=== PATIENT | female | born 1935 | race Caucasian/White ===

== ENCOUNTER 2018-10-09 17:37 | Inpatient (IN) ==
[2018-10-09] MEDS ORDERED: LASIX IV ONE (18:37)
[2018-10-09 19:18] LABS: BASO# 0.03 X1000 (0.0-0.2); BASO% 0.3 % (0.0-0.8); EOS# 0.31 X1000 (0.0-0.7); EOS% 3.3 % (0.0-10.0); HEMATOCRIT 36.8 % (37.0-47.0); HEMOGLOBIN 11.9 g/dL (12.0-16.0); LYMPH# 1.79 X1000 (1.2-3.4); MCH 31.2 PG (27-31); MCHC 32.3 g/dL (33-37); MCV 96.3 FL (81-99); MONO# 0.88 X1000 (0.11-0.59); MONO% 9.4 % (1.7-9.3); MPV 10.2 FL (7.4-10.4); NEUT# 6.39 X1000 (1.4-6.5); PLT 203 X1000 (130-400); RBC 3.82 XMIL (4.2-5.4); RDW 14.7 % (11.5-14.5)
[2018-10-09 19:28] LABS: INR 1.37; PROTIME 17.9 Seconds (11.0-16.0)
--- NOTE | 2018-10-09 19:37 | Diag Imaging Result Doc PS360 ---
CHEST-2 VIEWS - 10/09/2018 INDICATION: short of breath COMPARISON: 11/14/2017 FINDINGS: There is cardiomegaly and pulmonary vascular congestion. There are ill-defined infiltrates bilaterally, worse in the left upper lobe. No pneumothorax or large pleural effusion. IMPRESSION: Cardiomegaly and pulmonary vascular congestion. Nonspecific infiltrates compatible with edema and/or pneumonia. Electronically signed by Shane Trevino 10/09/2018 7:34 PM
[2018-10-09 19:44] LABS: ALB/GLOB RATIO 1.1; ALBUMIN 3.9 g/dL (3.5-5.0); CREATININE 1.1 mg/dL (0.5-0.9); MAGNESIUM 1.9 mg/dL (1.5-2.7); TOTAL BILIRUBIN 0.27 mg/dL (0.20-1.00); TOTAL PROTEIN 7.3 g/dL (6.3-8.3)
[2018-10-09 20:29] LABS: URINE SOURCE CATH
[2018-10-09 20:33] LABS: BILIRUBIN URINE NEGATIVE (NEGATIVE); BLOOD URINE NEGATIVE (NEGATIVE); COLOR YELLOW; GLUCOSE URINE NEGATIVE (NEGATIVE); KETONE URINE NEGATIVE (NEGATIVE); LEUKOCYTES URINE NEGATIVE (NEGATIVE); NITRITE URINE NEGATIVE (NEGATIVE); PROTEIN URINE NEGATIVE (NEGATIVE); SP GRAVITY URINE 1.008; TURBIDITY URINE CLEAR (CLEAR); UR EPITHELIAL CELLS <10 /HPF (<10); URINE BACTERIA NEGATIVE /HPF; URINE RBC <10 /HPF (<10); URINE WBC <10 /HPF (<10); UROBILINOGEN URINE NORMAL (NORMAL)
--- NOTE | 2018-10-09 22:48 | PROVIDER DOCUMENTATION ---
This chart was entered by Jenny Posada Scribe, acting as scribe for Audrey Castellanos MD. HPI-Respiratory General - General Chief Complaint: Shortness of Breath Stated Complaint: SOB Time Seen by Provider: 10/09/18 18:01 Source: patient Allergies/Adverse Reactions: Patient Allergies Allergy/AdvReac Type Severity Reaction Status Date / Time acetaminophen [From Lortab] Allergy Severe NAUSEA/VOMI Verified 10/17/15 11:09 TING amiodarone Allergy Severe RASH Verified 10/17/15 11:09 amitriptyline HCl * Allergy Severe wild, Verified 10/17/15 11:09 [From Elavil] aggitation aspirin Allergy Severe heart Verified 10/17/15 11:09 flutters caffeine Allergy Severe heart Verified 10/17/15 11:09 [From Darvon Compound-65] flutters cephalexin monohydrate * Allergy Severe RASH Verified 10/17/15 11:09 [From Keflex] codeine [Codeine] Allergy Severe crazy,n&V Verified 10/17/15 11:09 erythromycin estolate * Allergy Severe RASH Verified 10/17/15 11:09 [From Ilosone] hydrocodone bitartrate * Allergy Severe NAUSEA/VOMI Verified 10/17/15 11:09 [From Lortab] TING hydromorphone HCl * Allergy Severe RASH Verified 10/17/15 11:09 [From Dilaudid] indomethacin [From Indocin] Allergy Severe RASH Verified 10/17/15 11:09 indomethacin sodium * Allergy Severe RASH Verified 10/17/15 11:09 [From Indocin] Iodinated Contrast- Oral and Allergy Severe ANAPHYLAXIS Verified 10/17/15 11:09 IV Dye meperidine HCl * Allergy Severe crazy, Verified 10/17/15 11:09 [From Demerol] makes me mean, aggitation morphine Allergy Severe RASH, Verified 10/17/15 11:09 whelps pentazocine lactate * Allergy Severe crazy Verified 10/17/15 11:09 [From Talwin] perphenazine Allergy Severe crazy Verified 10/17/15 11:09 [From Triavil 2-10] phenobarbital Allergy Severe rash,vomiti Verified 10/17/15 11:09 ng povidone-iodine Allergy Severe RASH Verified 10/17/15 11:09 [From Betadine] pregabalin [From Lyrica] Allergy Severe Unknown Verified 10/17/15 11:09 propoxyphene HCl * Allergy Severe heart Verified 10/17/15 11:09 [From Darvon Compound-65] flutters soap * [From Betadine] Allergy Severe RASH Verified 10/17/15 11:09 Tetracyclines Allergy Severe blisters Verified 10/17/15 11:09 in mouth, gums bleed diltiazem HCl * Allergy RASH Verified 10/17/15 11:09 [From Cardizem] Latex, Natural Rubber Allergy RASH Verified 10/17/15 11:33 Home Medications: Home Medication List Medication Instructions Recorded Confirmed Last Taken Type Levothyroxine [Synthroid] 50 mcg PO DAILY 09/12/15 01/07/17 10/17/15 History Metformin HCl 500 mg PO BID 09/12/15 01/07/17 10/17/15 History Oxycodone HCl/Acetaminophen 1 tab PO TID PRN PRN 09/12/15 01/07/17 10/17/15 History [Oxycodon-Acetaminophen 7.5-325] Sotalol [Betapace] 80 mg PO BID 09/12/15 01/07/17 10/17/15 History Furosemide [Lasix] 40 mg PO DAILY #0 tablet 09/20/15 01/07/17 10/17/15 Rx Potassium Chloride E.r. [Klor-Con] 20 meq PO BID #0 tablet 09/20/15 01/07/17 10/17/15 Rx Esomeprazole [Nexium] 40 mg PO DAILY 10/17/15 01/07/17 10/17/15 History Duloxetine [Cymbalta] 60 mg PO DAILY capsule 01/08/17 Unknown Rx Oxycodone E.r. [Oxycontin] 10 mg PO Q12HR #60 tablet 01/08/17 Unknown Rx Sulfamethoxazole/Tmp D.s. [Septra 1 each PO BID #14 tablet 01/08/17 Unknown Rx Ds] Warfarin [Coumadin] 5 mg PO QHS tablet 01/08/17 Unknown Rx - History of Present Illness-Resp Nature of Presenting Problem: Pt is 83/F presenting to ED w/ SOB that has been present for the last 5 weeks, but has significantly worsened. Pt has hx of COPD, HTN and A-fib. She takes 40mg of Lasix daily, changed from 20mg 5 weeks prior. Family at bedside sts that they have not helped and she is prone to retaining fluid. Reported weight gain of about 10 lbs in the past couple of weeks. Quality of Pain: reports: none Onset/Duration: reports: gradual (gradual over the last 5 weeks.) Timing: reports: getting worse Cough Quality/Degree: reports: no cough Episode Frequency: chronic episodes Modifying Factors: improves with: nothing Associated Symptoms: reports: heart racing, shortness of breath, short of breath . denies: cough, wheezing Similar Symptoms Previously?: Yes Recently seen or treated by another doctor?: Yes Review of Systems - Adult - REVIEW OF SYSTEMS - ADULT Constitutional: reports: no symptoms reported. denies: chills, fever Eyes: reports: no symptoms reported Ears, Nose, Mouth & Throat: reports: no symptoms reported Cardiovascular: reports: no symptoms reported Respiratory: reports: shortness of breath. denies: cough, wheezing Gastrointestinal: reports: no symptoms reported. denies: abdominal pain Genitourinary: reports: no symptoms reported Musculoskeletal: reports: no symptoms reported Integumentary: reports: no symptoms reported Neurological: reports: no symptoms reported. denies: dizziness/vertigo, headache/migraines Psychiatric: reports: no symptoms reported Endocrine: reports: no symptoms reported Hematologic/Lymphatic: reports: no symptoms reported Allergic/Immunologic: reports: no symptoms reported All Other Systems: Reviewed and Negative Past History - Adult - PAST MEDICAL HISTORY-ADULT Review of Records: reports: Old Records Reviewed, Nursing Assessment Review, Medications Reviewed, Social history reviewed & non-contributory. Major Childhood Illnesses: reports: denies history Cardiovascular: reports: cardiac disease, HTN, palpitations Respiratory: reports: asthma, COPD Endocrine/Immune: reports: Diabetes, thyroid disorder - PRIOR SURGERIES/PROCEDURES Surgical/Procedure History: reports: appendectomy, hysterectomy, orthopedic (extremity) (total knee, left shoulder) - IMMUNIZATION STATUS Childhood Immunizations: See Nurse Assessment Flu Vaccine: See Nurse Assessment - FAMILY HISTORY Family History: reviewed, not pertinent - SOCIAL HISTORY Smoking: denies, non-smoker Substance Use: none/never Alcohol Use Frequency: never Living Situation: family Physical Exam-General - PHYSICAL EXAM-ADULT Initial Vital Signs Reviewed: Yes - CONSTITUTIONAL General Appearance: appears well, alert, mild distress - EYES Eyes: PERRL/EOMI, pink conjunctivae - HEAD, EARS, NOSE, MOUTH & THROAT HENMT: normocephalic/atraumatic, moist mucous membranes, normal ENT inspection, TMs normal, pharynx normal - NECK Neck: non-tender, full range of motion, supple - RESPIRATORY Respiratory: chest non-tender, lungs clear, respiratory distress, accessory muscle use. negative: crackles, rales, wheezing - CARDIOVASCULAR Cardiovascular: normal peripheral pulses, JVD, tachycardia, other (pt has pitting edema up to knee level as well as periorbital swelling). negative: no edema - GASTROINTESTINAL (ABDOMEN) Abdominal Exam: non tender, soft - LYMPHATIC Lymphatic: no adenopathy - MUSCULOSKELETAL Back Exam: normal inspection, no CVA tenderness, no vertebral tenderness Extremity: normal range of motion, non-tender, normal gait, normal capillary refill - SKIN Integumentary: normal color, warm/dry - NEUROLOGIC Neurologic: grossly normal - PSYCHIATRIC Psych/Mental Status: normal mood/affect, normal thought content, normal thought process, oriented x 3 Progress - PLAN OF CARE/RESULTS Progress/Plan/Lab Results: Vital Signs - 8 hr 10/09/18 18:00 10/09/18 18:15 10/09/18 18:20 Temperature 97.3 F L Pulse Rate 114 H Respiratory Rate 20 Blood Pressure 124/88 160/115 O2 Sat by Pulse Oximetry 91 L 87 L 95 10/09/18 18:23 10/09/18 18:30 10/09/18 18:40 Temperature Pulse Rate 118 H Respiratory Rate Blood Pressure 160/115 O2 Sat by Pulse Oximetry 98 97 89 L 10/09/18 18:50 10/09/18 19:00 10/09/18 19:18 Temperature Pulse Rate 114 H 124 H 108 H Respiratory Rate Blood Pressure O2 Sat by Pulse Oximetry 94 L 96 93 L 10/09/18 19:20 10/09/18 19:30 10/09/18 19:33 Temperature Pulse Rate 112 H 117 H 109 H Respiratory Rate Blood Pressure 138/103 O2 Sat by Pulse Oximetry 93 L 93 L 93 L 10/09/18 19:40 10/09/18 19:50 10/09/18 20:00 Temperature Pulse Rate 106 H 105 H 128 H Respiratory Rate Blood Pressure O2 Sat by Pulse Oximetry 94 L 94 L 94 L 10/09/18 20:02 10/09/18 20:10 10/09/18 20:20 Temperature Pulse Rate 103 H 105 H 106 H Respiratory Rate Blood Pressure 149/115 O2 Sat by Pulse Oximetry 93 L 92 L 95 10/09/18 20:30 10/09/18 20:33 10/09/18 20:40 Temperature Pulse Rate 93 H 107 H 109 H Respiratory Rate Blood Pressure 124/93 O2 Sat by Pulse Oximetry 95 95 94 L 10/09/18 20:50 10/09/18 20:59 10/09/18 21:00 Temperature Pulse Rate 96 H 98 H 121 H Respiratory Rate 17 Blood Pressure 124/93 O2 Sat by Pulse Oximetry 94 L 94 L 91 L 10/09/18 21:03 10/09/18 21:10 10/09/18 21:20 Temperature Pulse Rate 101 H 97 H 106 H Respiratory Rate Blood Pressure 142/99 O2 Sat by Pulse Oximetry 94 L 98 89 L 10/09/18 21:30 10/09/18 21:33 10/09/18 21:40 Temperature Pulse Rate 106 H 120 H 100 H Respiratory Rate Blood Pressure 143/106 O2 Sat by Pulse Oximetry 96 95 94 L 10/09/18 21:50 10/09/18 22:00 10/09/18 22:03 Temperature Pulse Rate 101 H 101 H 99 H Respiratory Rate Blood Pressure 141/93 O2 Sat by Pulse Oximetry 95 94 L 94 L Laboratory Results - last 24 hr 10/09/18 10/09/18 10/09/18 18:49 18:49 18:49 WBC 9.40 RBC 3.82 L Hgb 11.9 L Hct 36.8 L MCV 96.3 MCH 31.2 H MCHC 32.3 L RDW Std Deviation 14.7 H Plt Count 203 MPV 10.2 Immature Gran % (Auto) 0.0 Neut % (Auto) 68.0 Lymph % (Auto) 19.0 L [place] % (Auto) 9.4 H Eos % (Auto) 3.3 Baso % (Auto) 0.3 Immature Gran # (Auto) 0.00 Neut # (Auto) 6.39 Lymph # (Auto) 1.79 [place] # (Auto) 0.88 H Eos # (Auto) 0.31 Baso # (Auto) 0.03 PT INR Sodium 139 Potassium 5.0 Chloride 99 Carbon Dioxide 29 Anion Gap 11 BUN 27 H Creatinine 1.1 H Estimated GFR/1.73 m2 48 BUN/Creatinine Ratio 25 Glucose 158 H Calculated Osmolality 286 Calcium 10.0 Magnesium 1.9 Total Bilirubin 0.27 AST 24 ALT 15 Alkaline Phosphatase 68 Creatine Kinase 81 Troponin T [id number]-Xrkbuclxlvd Pept Total Protein 7.3 Albumin 3.9 Globulin 3.4 Albumin/Globulin Ratio 1.1 Plasma Lactate 1.7 TSH Urine Source Urine Color Urine Turbidity Urine pH Ur Specific [place] Urine Protein Ur Glucose (Stick) Ur Ketones (Stick) Urine Blood Urine Nitrite Urine Bilirubin Urobilinogen Dipstick Urine Leukocytes Urine WBC (Auto) Urine RBC (Auto) U Epithel Cells (Auto) Urine Bacteria (Auto) 10/09/18 10/09/18 10/09/18 18:49 18:49 18:49 WBC RBC Hgb Hct MCV MCH MCHC RDW Std Deviation Plt Count MPV Immature Gran % (Auto) Neut % (Auto) Lymph % (Auto) [place] % (Auto) Eos % (Auto) Baso % (Auto) Immature Gran # (Auto) Neut # (Auto) Lymph # (Auto) [place] # (Auto) Eos # (Auto) Baso # (Auto) PT 17.9 H INR 1.37 Sodium Potassium Chloride Carbon Dioxide Anion Gap BUN Creatinine Estimated GFR/1.73 m2 BUN/Creatinine Ratio Glucose Calculated Osmolality Calcium Magnesium Total Bilirubin AST ALT Alkaline Phosphatase Creatine Kinase Troponin T < 0.010 Bhw-I-Uazepjdlafo Pept 8268 H Total Protein Albumin Globulin Albumin/Globulin Ratio Plasma Lactate TSH Urine Source Urine Color Urine Turbidity Urine pH Ur Specific [place] Urine Protein Ur Glucose (Stick) Ur Ketones (Stick) Urine Blood Urine Nitrite Urine Bilirubin Urobilinogen Dipstick Urine Leukocytes Urine WBC (Auto) Urine RBC (Auto) U Epithel Cells (Auto) Urine Bacteria (Auto) 10/09/18 10/09/18 18:49 20:18 WBC RBC Hgb Hct MCV MCH MCHC RDW Std Deviation Plt Count MPV Immature Gran % (Auto) Neut % (Auto) Lymph % (Auto) [place] % (Auto) Eos % (Auto) Baso % (Auto) Immature Gran # (Auto) Neut # (Auto) Lymph # (Auto) [place] # (Auto) Eos # (Auto) Baso # (Auto) PT INR Sodium Potassium Chloride Carbon Dioxide Anion Gap BUN Creatinine Estimated GFR/1.73 m2 BUN/Creatinine Ratio Glucose Calculated Osmolality Calcium Magnesium Total Bilirubin AST ALT Alkaline Phosphatase Creatine Kinase Troponin T Kvr-T-Hznprongbbh Pept Total Protein Albumin Globulin Albumin/Globulin Ratio Plasma Lactate TSH 4.50 H Urine Source CATH Urine Color YELLOW Urine Turbidity CLEAR Urine pH 7.0 Ur Specific [place] 1.008 Urine Protein NEGATIVE Ur Glucose (Stick) NEGATIVE Ur Ketones (Stick) NEGATIVE Urine Blood NEGATIVE Urine Nitrite NEGATIVE Urine Bilirubin NEGATIVE Urobilinogen Dipstick NORMAL Urine Leukocytes NEGATIVE Urine WBC (Auto) <10 Urine RBC (Auto) <10 U Epithel Cells (Auto) <10 Urine Bacteria (Auto) NEGATIVE Orders Category Date Time Status Gonzalez Cath Insertion ORDERED Care 10/09/18 20:04 Active Nursing- Obtain EKG once Care 10/09/18 17:56 Active Saline Loc NOW Care 10/09/18 17:56 Active CHEST-2 VIEWS [RAD] Stat Exams 10/09/18 17:57 Completed CBC WITH ELECTRONIC DIFF [HEME] Stat Lab 10/09/18 18:49 Completed CK PROFILE [SP CHEM] Stat Lab 10/09/18 18:49 Completed COMPREHENSIVE METABOLIC PANEL [CHEM] Stat Lab 10/09/18 18:49 Completed LACTATE, PLASMA [CHEM] Stat Lab 10/09/18 18:49 Completed MAGNESIUM [CHEM] Stat Lab 10/09/18 18:49 Completed PRO B-NATRIURETIC PEPTIDE Stat Lab 10/09/18 18:49 Completed PROTIME WITH INR [COAG] Stat Lab 10/09/18 18:49 Completed TROPONIN T Stat Lab 10/09/18 18:49 Completed TSH Stat Lab 10/09/18 18:49 Completed UA [URINALYSIS W/POSS RFLX CULT] [URINALYSIS] Stat Lab 10/09/18 20:18 Completed Furosemide [Lasix] Med 10/09/18 18:37 Discontinued 60 mg IV NOW ONE EKG [EKG] Stat Ther 10/09/18 17:56 Ordered Transfer/Admit Order [TRANSFER] Routine Transfer 10/09/18 21:01 Ordered [facility] [address] , [address], [place] [address] Department of Imaging Patient: LE CERDA ADM Date: 10/09/18 MR#: [id number] : 1935 ADM Status: PRE ER Age/Sex: 83/F Room/Bed: Loc: ED Ordering Physician: Alex Heller MD Family Physician: Abhi Rebolledo MD Reason for Procedure: short of breath ___ Signed CHEST-2 VIEWS - 10/09/2018 INDICATION: short of breath COMPARISON: 11/14/2017 FINDINGS: There is cardiomegaly and pulmonary vascular congestion. There are ill-defined infiltrates bilaterally, worse in the left upper lobe. No pneumothorax or large pleural effusion. IMPRESSION: Cardiomegaly and pulmonary vascular congestion. Nonspecific i nfiltrates compatible with edema and/or pneumonia. Electronically signed by Shane Trevino 10/09/2018 7:34 PM 10/09/181933 Interpreting Physician: Shane Trevino MD Dictated Date/Time: 10/09/181933 cc: Alex Heller MD; Abhi Rebolledo MD Result Diagrams: 10/09/18 18:49 10/09/18 18:49 - EKG 1 Time of EKG reading by physician:: 18:04 EKG Read and Signed by:: Audrey Castellanos EKG Interpretation (*Must complete 3 of following elements*): Abnormal (Atrial fibrillation with rapid ventricular response, Low voltage QRS, Cannot rule out Anterior infarct age undetermined, Abnormal ECG) Rate: 124 Rhythm: Atrial fibrillation QRS: normal [place] Interval: normal ST Wave: normal - CONSULTS/PCP/HOSPITALIST Notification #1 *Consult/PCP/Hospitalist*: Dr Bourne Time Discussed: 22:47 Consult Disposition: Admit Departure - Departure Date of Disposition Decision: 10/09/18 Time of Disposition Decision: 20:26 DIAGNOSIS: CHF (congestive heart failure), A-fib, Hypothyroid Disposition: ADMITTED INPATIENT 09 Certified Medical Emergency: Emergent Condition: Stable - Critical Care Note This patient required my direct & personal management of CC.: No Attestation - Physician/ GOOD Attestation Patient care was provided by Advanced Practice Provider:: No The physician spent face to face time with patient:: Yes Advanced Practice Provider documentation review:: Supervising physician onsite and consulted in the evaluation and care of this patient. The physician did have a face to face encounter with the patient. This chart was documented by the indicated scribe, (Jenny Posada, [place]) and accurately reflects the services I performed and decisions made by me, Audrey Castellanos MD, as attested by the provider's signature.
[2018-10-09] MEDS ORDERED: OXYCONTIN PO ONE (23:15)
--- NOTE | 2018-10-09 23:50 | HISTORY AND PHYSICAL ---
ADDENDUM: Chief complaint was shortness of breath. She has been dealing with this intermittently for 5 weeks. I think she has seen Dr. Rebolledo as an outpatient. Her Lasix has been increased to 40 mg daily. Her daughter reports overall she has gained 10 pounds in the last 2 weeks, 15 in the last 5 weeks, I guess most of it in the last 2 weeks. No cough. No fevers, no chills. No night sweats. She is just still accumulating fluid. She came in. She was tachycardic in the 100s to 110s, but not clearly in RVR, but atrial fibrillation and she had evidence of heart failure based on her chest x-ray and elevated proBNP of 8268. Her exam reveals rales. She has about 1+ edema in her legs. The patient will be admitted for treatment. 1. For her CHF exacerbation we will give her IV diuretics. Try to work on getting her tachycardia down. If she has systolic or diastolic dysfunction, I went ahead and added digoxin. She is already on sotalol and we will consult Cardiology, Dr. Mujica, to make further changes. 2. Atrial fibrillation, which is not controlled. We will adjust her medicines. She is on sotalol, so presumably her ejection fraction is intact. We will try to get a repeat echocardiogram despite the weekend, and again, I have added digoxin to help with rate control and also heart failure symptoms. 3. Diabetes. We will continue metformin. Check A1c. Continue sliding scale insulin and follow. This was a [id number] encounter note with HOLLIE Bee. Dr. Rebolledo and primary team will resume care in the morning. cc: Jose Armando Bourne MD
[2018-10-09] MEDS ORDERED: TYLENOL PO ONE (23:57)
[2018-10-10] MEDS ORDERED: ZOFRAN IV PRN
[2018-10-10] MEDS ORDERED: COUMADIN PO ONE (00:10)
[2018-10-10] MEDS: LANOXIN IV SCH ×3 (00:15→10:00)
[2018-10-10] MEDS ORDERED: LOPRESSOR PO SCH (03:15)
[2018-10-10 04:12] LABS: BASO# 0.03 X1000 (0.0-0.2); BASO% 0.3 % (0.0-0.8); EOS# 0.19 X1000 (0.0-0.7); EOS% 1.9 % (0.0-10.0); HEMATOCRIT 33.9 % (37.0-47.0); HEMOGLOBIN 10.9 g/dL (12.0-16.0); IMM GRAN# 0.02 X1000 (0.0-0.04); IMM GRAN% 0.2 % (0.0-0.5); LYMPH# 1.76 X1000 (1.2-3.4); LYMPH% 17.7 % (20.5-51.1); MCHC 32.2 g/dL (33-37); MCV 96.3 FL (81-99); MONO# 0.81 X1000 (0.11-0.59); MONO% 8.1 % (1.7-9.3); MPV 9.6 FL (7.4-10.4); NEUT# 7.16 X1000 (1.4-6.5); NEUT% 71.8 % (42.2-75.2); PLT 203 X1000 (130-400); RBC 3.52 XMIL (4.2-5.4); RDW 14.4 % (11.5-14.5); WBC 9.97 X1000 (4.8-10.8)
[2018-10-10 04:28] LABS: INR 1.42; PROTIME 18.4 Seconds (11.0-16.0)
[2018-10-10 04:38] LABS: HEMOGLOBIN A1C 6.7 % (4.8-6.0)
[2018-10-10 05:02] LABS: ALB/GLOB RATIO 1.1; ALBUMIN 3.4 g/dL (3.5-5.0); CALCIUM 8.3 mg/dL (8.8-10.2); CREATININE 1.1 mg/dL (0.5-0.9); MAGNESIUM 1.7 mg/dL (1.5-2.7); POTASSIUM 4.6 mmol/L (3.5-5.1); TOTAL BILIRUBIN 0.44 mg/dL (0.20-1.00); TOTAL PROTEIN 6.4 g/dL (6.3-8.3)
[2018-10-10] MEDS: LASIX IV SCH ×2 (05:31→17:10)
[2018-10-10] MEDS ORDERED: TYLENOL PO PRN ×2 (07:00)
[2018-10-10] MEDS ORDERED: MOTRIN PO PRN (08:28)
[2018-10-10] MEDS ORDERED: OXYCONTIN PO SCH ×2 (09:00)
[2018-10-10] MEDS ORDERED: COUMADIN PO SCH ×3 (09:00→21:00)
[2018-10-10] MEDS ORDERED: BETAPACE PO SCH (09:00)
[2018-10-10] MEDS ORDERED: GLUCOPHAGE PO SCH ×2 (09:00)
[2018-10-10] MEDS: IMDUR PO SCH (09:59)
[2018-10-10] MEDS: KLOR-CON PO SCH ×2 (09:59→20:08)
[2018-10-10] MEDS: ALDACTONE PO SCH (09:59)
[2018-10-10] MEDS: CYMBALTA PO SCH (09:59)
--- NOTE | 2018-10-10 09:59 | PROGRESS NOTE ---
DATE: 10/10/2018 SUBJECTIVE: Ms. Brown is an 83-year-old white female with chest tightness and shortness of breath for a couple of days, who presented to the emergency room and was found to have pulmonary edema. Initial laboratory did not suggest pneumonia, and she has been afebrile. This morning, hemoglobin was 10.9, hematocrit 33.9, white blood count 9900. Sodium 139, potassium 4.6, BUN 25, creatinine 1.1. Hemoglobin A1c 6.7, calcium 8.3, albumin 3.4. TSH 3.4, free T4 1.18. CPK 60, troponin less than 0.01. I and O reveals balance of -4.6 L. She is feeling better this morning, and chest is clear. PLAN: Continue intravenous Lasix. Gradually increase activity. cc: Abhi Rebolledo MD
[2018-10-10] MEDS: OXYCONTIN PO SCH ×2 (13:09→23:46)
[2018-10-10] MEDS: TOPROL XL PO SCH ×2 (14:27→20:08)
--- NOTE | 2018-10-10 14:31 | CARDIOLOGY CONSULTATION ---
DATE: 10/10/2018 83-year-old lady was seen today who is followed up in [place] has multiple allergies, comes with complaints of having increasing episodes of shortness of breath associated with chest tightness which has been going on for at least the last 3 to 4 weeks. She is on medications for atrial fibrillation. Has not had any worsening palpitations. There is no dizziness or syncope. In the past she used to take sotalol now is on other beta blockers. She was admitted, started on IV Lasix, since then her shortness of breath has improved. REVIEW OF SYSTEM: A 14-point review of systems was done. GI: There is no history of nausea, vomiting or diarrhea. There is no history of hematemesis or melena. Central nervous system: No focal weakness to suggest CVA, TIA. : There is no dysuria or hematuria. PAST MEDICAL HISTORY: 1. Atrial fibrillation. 2. Diabetes. 3. Gastroesophageal reflux disease. 4. Hypothyroidism. 5. Chronic atrial fibrillation. 6. Chronic anticoagulation therapy. HOME MEDICATIONS: Included metformin 500 mg a day, Lasix 40 mg a day, duloxetine 60 a day, Nexium 20 mg daily, ibuprofen 200 mg as needed, isosorbide mononitrate 30 mg a day, levothyroxine 50 mcg a day, metformin 1000 mg with supper, metoprolol 50 mg p.o. t.i.d., spironolactone 25, Coumadin as directed, potassium supplements. ALLERGIES: She is allergic to amiodarone which causes severe rash, aspirin, caffeine, codeine, erythromycin, hydromorphone, indomethacin, iodinated contrast she has anaphylaxis, meperidine, Cardizem, Betadine, tetracyclines, phenobarbital, morphine, Darvon, latex. PHYSICAL EXAMINATION: Vital Signs: Blood pressure was 135/74. Cardiovascular: Normal jugular venous pressure. First and second heart sounds were heard. There was no S3 gallop. Respiratory: Bibasilar scattered inspiratory crepitations. Abdomen: Soft, nontender. There was no guarding or rigidity. Bowel sounds were heard. Central nervous system: Alert and was moving all 4 extremities. Examination of extremities revealed mild pedal edema. DATA: Chest x-ray, cardiomegaly, nonspecific infiltrates, pulmonary congestion. LABORATORY EXAMINATION: Cardiac enzymes were negative. ProBNP elevated at 8268. Sodium 139, potassium 4.6, BUN 25, creatinine 1.1. Hemoglobin A1c 6.7. WBC 9.9, hemoglobin 10.9, hematocrit 33, platelet count of 203,000, INR 1.42. ASSESSMENT AND PLAN: Ms. Luli Brown is an 83-year-old lady with history of chronic atrial fibrillation, diabetes, hypothyroidism, heart failure, gastroesophageal reflux disease, comes with complaints of increasing shortness of breath. The patient was given intravenous Lasix. Symptomatically she has improved. PLAN: 1. We will get an echocardiogram to assess cardiac and valvular function. 2. Her cardiac enzymes were negative. 3. She has had atrial fibrillation and is on beta-blockers, metoprolol 50 t.i.d. and Coumadin for stroke prophylaxis. We will continue that. 4. Hypertension. Continue with Toprol and spironolactone. I have not made any changes. 5. As far as heart failure is concerned, she was on Lasix 40 mg p.o. daily, she is on IV Lasix 40 mg twice a day, has symptomatically improved. 6. Hypothyroidism. Continue with levothyroxine. 7. Diabetes. Continue with her current medications. 8. We will get records from [place] pertaining to her care there. She says she has undergone an arteriogram and other tests there as well. Thank you for the consult. Will follow hospital course. cc: MD Abhi Muniz MD MTDD
--- NOTE | 2018-10-10 14:51 | ECHO REPORT ---
ORDER DATE: 10/10/2018 ECHOCARDIOGRAPHIC MEASUREMENTS: 1. Interventricular septum 1.1. 2. Left ventricular posterior wall 1.1. 3. Diastolic diameter 4.8. 4. Left atrium 4.8. 5. Aorta 3.4. SUMMARY: 1. There is moderate tricuspid regurgitation. 2. Peak velocity across the tricuspid valve was 4.3 m/sec. 3. Pulmonary artery systolic pressure of 84 mmHg. There is pulmonary arterial hypertension. There is mild mitral regurgitation. 4. Mild pulmonary regurgitation. 5. Pulmonic valve was normal. 6. Aortic valve leaflets were trileaflet. 7. There is no aortic stenosis. 8. There is mild aortic regurgitation. 9. There is biatrial enlargement. 10. Normal left ventricular cavity size. 11. Mild left ventricular hypertrophy. 12. Estimated ejection fraction of 60%. 13. Atrial fibrillation was noted. 14. There is mild mitral regurgitation. 15. There is no pericardial effusion or obvious intracardiac mass or thrombus seen. cc: MD Abhi Muniz MD
[2018-10-10] MEDS: GLUCOPHAGE PO SCH (17:10)
[2018-10-10] MEDS: DESYREL PO SCH (20:08)
[2018-10-10] MEDS: COUMADIN PO SCH (20:08)
--- NOTE | 2018-10-11 02:03 | HISTORY AND PHYSICAL ---
PRIMARY CARE PROVIDER: Dr. Abhi Rebolledo. CHIEF COMPLAINT: Shortness of breath and edema. HISTORY OF PRESENT ILLNESS: Ms Brown is an 83-year-old female with a past medical history most notable for congestive heart failure, atrial fibrillation on chronic anticoagulation with Coumadin, diabetes mellitus and hypothyroidism. The patient presents to the ER this evening with complaints of worsening shortness of breath and edema. The patient as well as her daughter at bedside state for the past 5 weeks the patient has had progressive worsening of her symptoms. She states that they did go to see Dr. Rebolledo. He did increase her Lasix dose from 20 to 40 daily though even with this she has continued to have worsening symptoms. She has also had a reported 10 pound weight gain in the last 2 weeks and a total of 15 pounds weight gain in the last 5 weeks. She denies any headache, dizziness. She is reporting occasional pain in the center of her chest but states this is intermittent. She is reporting shortness of breath and denies any cough. She denies any fever, body aches, or chills. She denies any abdominal pain, nausea, vomiting, or diarrhea. She denies any hematochezia or melena. She denies any dysuria. The patient is reporting edema in her bilateral lower extremities. It is approximately 1 to 2+ pitting edema at this time. She states that this has worsened. Her legs do have reddish discoloration noted to bilateral lower extremities from approximately knees down but she states this is not a new onset though she has had problems with cellulitis in the past. She denies any pain in her bilateral lower extremities at this time. Upon evaluation in the ER, patient was noted to have elevated proBNP that was 8268 though her cardiac enzymes were negative. She did have crackles noted in bilateral bases upon auscultation. Chest x-ray did show cardiomegaly and pulmonary vascular congestion. There were nonspecific infiltrates compatible with edema and/or pneumonia. She was in atrial fibrillation. Her heart rate was slightly elevated in the low 100s to 110s. She has been given an initial dose of 60 mg of IV Lasix in the ER and has had positive return of greater than 3000 mL of urine output. The patient states since this time that she does feel much better. She will be admitted inpatient for further treatment and evaluation of congestive heart failure exacerbation. REVIEW OF SYSTEM: A 14-point review of systems was conducted with the patient and all were negative except for pertinent positives mentioned above HPI. PAST MEDICAL HISTORY: 1. Degenerative disk disease. 2. Osteoarthritis. 3. Fibromyalgia. 4. Congestive heart failure. 5. Atrial fibrillation, on chronic anticoagulation with Coumadin. 6. Diabetes mellitus. 7. Gastroesophageal reflux disease. 8. Hypothyroidism. PAST SURGICAL HISTORY: Left shoulder surgery. SOCIAL HISTORY: She is a . Her daughter does help take care of her. She was present at bedside during our examination. She has no known tobacco, alcohol or illicit drug use. She does live in an assisted living facility in [place], [place]. FAMILY HISTORY: Positive for 1 of her sisters having gastric cancer, another sister had leukemia. She does have a brother who has had heart disease with myocardial infarction and diabetes mellitus. ALLERGIES: The patient has multiple allergies. The list is very extensive. 1. Lortab. 2. Amiodarone. 3. Elavil. 4. Aspirin. 5. Darvon. 6. Keflex. 7. Codeine. 8. Ilosone. 9. Dilaudid. 10. Indocin. 11. Oral and IV iodinated contrast dye. 12. Demerol. 13. Morphine. 14. Talwin. 15. Triavil. 16. Phenobarbital. 17. Betadine. 18. Lyrica. 19. Tetracyclines. 20. Cardizem. 21. Latex. HOME MEDICATIONS: 1. Tylenol Arthritis 650 mg p.o. t.i.d. p.r.n. 2. Benzonatate 200 mg p.o. t.i.d. p.r.n. 3. [*]20 mg p.o. b.i.d. p.r.n. 4. Cymbalta 60 mg p.o. daily. 5. Nexium 20 mg p.o. daily. 6. Lasix 40 mg p.o. daily. 7. Ibuprofen 200 mg p.o. t.i.d. p.r.n. 8. Fusion capsule 1 p.o. daily. 9. Isosorbide mononitrate extended release 30 mg. 10. Synthroid 50 mcg p.o. daily. 11. Metformin 500 mg p.o. daily in the morning. 12. Metformin 1000 mg p.o. with supper. 13. Toprol-XL 50 mg p.o. t.i.d. 14. OxyContin 10 mg p.o. q.12 hours for pain. 15. Percocet 7.5 one p.o. t.i.d. p.r.n. 16. Potassium chloride extended release 10 mEq p.o. b.i.d. 17. Spironolactone 25 mg p.o. daily. 18. Trazodone 100 mg p.o. at bedtime. 19. Coumadin 2.5 mg p.o. daily except for on Friday for which she takes 5 mg p.o. DIAGNOSTIC DATA: White blood cell count is 9400, hemoglobin 11.9, hematocrit 36.8, platelet count is 203,000. PT is 17.9. INR 1.37. Sodium 139, potassium 5, chloride 99, serum bicarbonate is 29, BUN 27, creatinine 1.1 with a GFR of 48, glucose 158, calcium 10, magnesium 1.9. Liver function tests within normal limits. CK 81. Troponin less than 0.01. ProBNP is 8268. Urinalysis was obtained via catheter. It was negative for any signs of infection, negative for glucose, ketones, blood, nitrites, leukocytes, white blood cells or bacteria. EKG showed atrial fibrillation at a rate of 124 with a QTc of 442. Chest x-ray showed cardiomegaly and pulmonary vascular congestion. There were nonspecific infiltrates compatible with edema and/or pneumonia. PHYSICAL EXAMINATION: VITAL SIGNS: Temperature 97.5 degrees, heart rate 105, respirations 16, blood pressure 138/95, oxygen saturation is 97% nasal cannula at 2 L. GENERAL: The patient at this time is alert and oriented to person, place though she is slightly confused at times about past medical history though she is able to answer questions appropriately and follow commands. HEENT: Head is atraumatic, normocephalic. Pupils are equal, round, reactive to light, were 3 mm bilaterally and brisk. Oral mucosa is moist. Oropharynx is clear. NECK: Supple. Trachea midline. CARDIOVASCULAR: Patient has S1 and S2. No murmurs, gallops, rubs appreciated though she does have irregularly irregular rhythm with a rate that is slightly tachycardic. PULMONARY: Patient has symmetrical chest expansion bilaterally. Lung sounds in upper lung brink were clear to auscultation though lower lung brink did have crackles noted in bilateral bases. ABDOMEN: Soft, nondistended, nontender. Bowel sounds are present in all 4 quadrants, were normoactive. EXTREMITIES: No cyanosis noted though the patient does have edema and a reddish discoloration noted in bilateral lower extremities. The reddish discoloration is from bilateral knees down. She does have 1 to 2+ pitting edema noted from bilateral knees down as well though pulse, motor and sensory are intact in all extremities. Radial pulses and pedal pulses were 2+ bilaterally. INTEGUMENTARY: The patient's skin is pink, warm, and dry except for above mentioned reddish discoloration in the above extremities exams. NEUROLOGICAL: Patient is alert and oriented to person and place. She is able to answer questions appropriately and follow commands though she does have some confusion at times about questions related to past medical history. She is able move all extremities. There do no appear to be focal neurological deficits noted at this time. ASSESSMENT AND PLAN: 1. Congestive heart failure exacerbation. For this, we will continue with IV diuretics. She did receive 60 mg of Lasix IV initially and did have a positive return of greater than 3000 mL of urine output. We will continue with Lasix 40 mg IV q.12 hours. We will also perform an echocardiogram and she will have a series of cardiac enzymes. We will continue her metoprolol though it looks as though the patient did take Toprol-XL 50 mg p.o. t.i.d. At this time we have placed her with Toprol tartrate 50 mg p.o. q.6 hours. We will also give her digoxin as well to see if we can slow her heart rate down a bit. She still is a little tachycardic at this time. The patient does report that since being given the Lasix and having urine output as previous mentioned that she does feel much better. She denies any chest pain at present. We will place a consult with Cardiology and await their evaluation and further recommendations for management. 2. History of atrial fibrillation, on chronic anticoagulation with Coumadin. We will continue the patient's metoprolol as mentioned above. We have also ordered for her to receive digoxin as well. She will be placed on CIC. She will have continuous cardiac telemetry and vital signs per CIC protocol. We will continue the patient's Coumadin as well though she is slightly subtherapeutic. We will give her 5 mg of Coumadin tonight, repeat her INR and adjust her dosage from there. 3. Diabetes mellitus. We will continue her metformin. 4. Gastroesophageal reflux disease. We will continue her Prilosec. 5. Chronic pain secondary to degenerative disk disease, osteoarthritis and fibromyalgia. We will continue the patient's regularly prescribed pain medications of OxyContin as well as p.r.n. Percocet. 6. Hypothyroidism. We will continue her Synthroid as well. We have placed an order for a TSH. 7. Venous thromboembolism prophylaxis will be provided with previously mentioned Coumadin. The patient has been placed on CIC with telemetry. She will have vital signs per CIC protocol. We will do daily weights, strict intake and output. She will be on a diabetic diet. We will do patterned fingerstick blood sugars. We will repeat a CBC, CMP with magnesium in the morning. We will also continue with serial cardiac enzymes. Further orders and recommendations pending hospital course, diagnostic data and physician evaluation. Dictated by HOLLIE Bee for Jose Armando Bourne MD cc: MD Abhi Majano MD
[2018-10-11] MEDS: LASIX IV SCH ×2 (05:57→17:01)
[2018-10-11] MEDS: PRILOSEC PO SCH (06:00)
[2018-10-11] MEDS: SYNTHROID PO SCH (06:00)
[2018-10-11 06:29] LABS: INR 1.61; PROTIME 20.4 Seconds (11.0-16.0)
[2018-10-11] MEDS: TOPROL XL PO SCH ×3 (09:02→17:01)
[2018-10-11] MEDS: ALDACTONE PO SCH (09:02)
[2018-10-11] MEDS: IMDUR PO SCH (09:02)
[2018-10-11] MEDS: KLOR-CON PO SCH ×2 (09:03→20:46)
[2018-10-11] MEDS: CYMBALTA PO SCH (09:03)
[2018-10-11] MEDS: GLUCOPHAGE PO SCH ×2 (09:03→17:01)
--- NOTE | 2018-10-11 11:48 | PROGRESS NOTE ---
DATE: 10/11/2018 SUBJECTIVE: Ms. Brown is an 83-year-old, white, female patient admitted with increasing shortness of breath, weight gain, bilateral leg swelling. The patient was not responding to outpatient treatment. The patient was evaluated in the ER, found to be in uncompensated congestive heart failure. The patient was given IV Lasix in the ER. She diuresed very well. Patient also had underlying atrial fibrillation. The patient had a rapid ventricular response. As patient was not responding to outpatient treatment, she was admitted for further care. The patient is doing fair. She still had some shortness of breath. She denied any nausea. Complaining of neck pain. No typical chest pain. Denied abdominal pain. No fever or chills. No dysuria or hematuria. Denied any diarrhea. Admission history and physical noted. PAST MEDICAL HISTORY: Significant for congestive heart failure, history of atrial fibrillation, diabetes mellitus, gastritis and reflux disease, hypothyroidism, degenerative disk disease, fibromyalgia. PHYSICAL EXAMINATION: Vital Signs: Blood pressure 133/90, pulse 93, respirations 18, temperature 98.1 degrees. Skin: Senile turgor. Neck: Supple. No JVD. Lungs: Bilateral good air entry present. Few basal crepitations. CVS: S1 and S2. Irregularly irregular. A 2/6 systolic murmur at the apex. Abdomen: Soft, globular. Bowel sounds present. Extremities: No cyanosis, clubbing. No acute DVT. ACROBATIC RIGGER: Alert, awake. Able to move all 4 limbs. LABORATORY DATA: Revealed TSH of 3.40, free T4 of 1.18. Blood sugar was 157. CONSIDERATION: 1. Uncompensated congestive heart failure. 2. Atrial fibrillation with rapid ventricular response. 3. Hypertension. 4. Hypothyroidism. 5. Diabetes mellitus. 6. Osteoarthritis. 7. Degenerative disk disease. PLAN: The patient is on intravenous Lasix, beta rubina, Synthroid, Coumadin, pain medications. We are monitoring her prothrombin time. Overall plan discussed with the patient and she is in agreement. cc: MD Abhi Altman MD
[2018-10-11] MEDS: OXYCONTIN PO SCH ×2 (13:15→23:38)
[2018-10-11] MEDS: DESYREL PO SCH (20:46)
[2018-10-11] MEDS ORDERED: COUMADIN PO SCH (21:00)
[2018-10-11] MEDS: TYLENOL ARTHRITIS PO PRN (21:24)
[2018-10-12] MEDS: OXYCONTIN PO SCH ×2 (03:19→15:22)
[2018-10-12 05:42] LABS: INR 1.63; PROTIME 20.6 Seconds (11.0-16.0)
[2018-10-12] MEDS: PRILOSEC PO SCH (06:07)
[2018-10-12] MEDS: LASIX IV SCH ×2 (06:07→17:01)
[2018-10-12] MEDS: SYNTHROID PO SCH (06:08)
--- NOTE | 2018-10-12 07:51 | EKG Report ---
Test Performed on : 10/09/2018 6:04:38 PM Test Reason : SOB Blood Pressure : / mmHG Vent. Rate : 124 BPM Atrial Rate : 156 BPM P-R Int : 000 ms QRS Dur : 088 ms QT Int : 308 ms P-R-T Axes : 000 051 058 degrees QTc Int : 442 ms Atrial fibrillation. with rapid ventricular response. Low voltage QRS Cannot rule out Anterior infarct , age undetermined Abnormal ECG When compared with ECG of 22-APR-2017 18:50, Atrial fibrillation. has replaced Sinus rhythm. Criteria for Inferior infarct are no longer present Unconfirmed Result
--- NOTE | 2018-10-12 07:59 | PROGRESS NOTE ---
DATE: 10/12/2018 VITAL SIGNS: Stable with temperature 97.6 degrees, heart rate 88, respirations 19, blood pressure 110/70, O2 saturation on 2 liters nasal oxygen 93%. SUBJECTIVE: The patient continues to be weak, but is eating fairly well. She was up in a chair yesterday. There is no ankle edema. PLAN: Repeat BMP tomorrow morning, and chest x-ray. Physical Therapy is asked to assist ambulation. cc: Abhi Rebolledo MD
--- NOTE | 2018-10-12 09:16 | Diag Imaging Result Doc PS360 ---
EXAM: CHEST-PORTABLE HISTORY: dyspnea TECHNIQUE: Portable chest single view COMPARISON: 10/09/2018 FINDINGS: Poor inspiratory effort. There are infiltrates in the mid and lower left lung. The right lung is clear. The heart remains mildly enlarged. No pleural effusions identified. IMPRESSION: No significant interval improvement. Electronically signed by Abdiaziz Trujillo 10/12/2018 9:14 AM
[2018-10-12] MEDS: TOPROL XL PO SCH ×2 (12:00→15:23)
[2018-10-12] MEDS: GLUCOPHAGE PO SCH ×2 (12:20→17:01)
[2018-10-12] MEDS ORDERED: LEXISCAN ONE (13:40)
[2018-10-12] MEDS: KLOR-CON PO SCH ×2 (15:22→20:03)
[2018-10-12] MEDS: CYMBALTA PO SCH (15:22)
[2018-10-12] MEDS: IMDUR PO SCH (15:23)
[2018-10-12] MEDS: ALDACTONE PO SCH (15:23)
--- NOTE | 2018-10-12 16:15 | Diag Imaging Result Document ---
PROCEDURE NAME: MYOCARDIAL PERF SCAN, STR/REST - 10/12/2018 MYOCARDIAL PERFUSION SCAN AND RESULT: INDICATION: CHF exacerbation. PROCEDURES PERFORMED: 1. Lexiscan stress. 2. One-day stress/rest myocardial perfusion imaging. PROCEDURE DETAIL: Ms. Brown was brought to the nuclear laboratory and had a resting study with injection of 12.6 mCi of technetium-99m sestamibi with the usual imaging protocol utilized. She subsequently was brought back and had a Lexiscan stress and at peak stress was injected with 34.9 mCi of technetium-99m sestamibi with the usual imaging protocol utilized. FINDINGS: LEXISCAN STRESS RESULTS: 1. Baseline EKG shows atrial fibrillation, a suggestion of inferior Q-waves. 2. Lexiscan stress did not demonstrate any clear evidence of ischemic related EKG changes or significant arrhythmias. PERFUSION IMAGING RESULTS: 1. No evidence of abnormal extracardiac uptake. 2. TID ratio 0.89. 3. Perfusion imaging demonstrates what appears to be a small size, mild intensity, fixed defect located at the apex, which is likely suggestive of apical thinning artifact. There is no clear evidence of ischemic-related changes. 4. There is a normal ejection fraction of 72%. End-diastolic volume 77 end-systolic volume 22. Normal wall motion. cc: MD Anette Salinas PA
[2018-10-12] MEDS: TYLENOL ARTHRITIS PO PRN (20:03)
[2018-10-12] MEDS: COUMADIN PO SCH (20:03)
[2018-10-12] MEDS: DESYREL PO SCH (20:03)
[2018-10-13] MEDS: PERCOCET-5 PO PRN ×2 (00:13→13:34)
[2018-10-13] MEDS: OXYCONTIN PO SCH ×2 (02:59→17:45)
[2018-10-13] MEDS: LASIX IV SCH ×2 (05:27→17:45)
[2018-10-13 06:00] LABS: CALCIUM 8.6 mg/dL (8.8-10.2); CREATININE 1.2 mg/dL (0.5-0.9)
--- NOTE | 2018-10-13 08:20 | Diag Imaging Result Doc PS360 ---
EXAM: CHEST-2 VIEWS HISTORY: CHF TECHNIQUE: Chest two views COMPARISON: 10/12/2018 FINDINGS: Poor inspiratory effort. The heart remains enlarged. There are infiltrates in the mid and lower left lung. Questionable small infiltrates in the right apex. No pleural effusions. IMPRESSION: Stable chest Electronically signed by Abdiaziz Trujillo 10/13/2018 8:18 AM
[2018-10-13] MEDS: ALDACTONE PO SCH (08:50)
[2018-10-13] MEDS: IMDUR PO SCH (08:50)
[2018-10-13] MEDS: PRILOSEC PO SCH (08:50)
[2018-10-13] MEDS: CYMBALTA PO SCH (08:50)
[2018-10-13] MEDS: SYNTHROID PO SCH (08:51)
[2018-10-13] MEDS: KLOR-CON PO SCH ×2 (08:51→20:11)
[2018-10-13] MEDS: GLUCOPHAGE PO SCH ×2 (08:51→17:46)
[2018-10-13] MEDS ORDERED: TOPROL XL PO SCH (09:00)
[2018-10-13] MEDS ORDERED: LANOXIN IV ONE (18:24)
[2018-10-13] MEDS: DESYREL PO SCH (20:11)
[2018-10-13] MEDS: COUMADIN PO SCH (20:12)
[2018-10-13] MEDS: LOPRESSOR PO SCH (20:12)
[2018-10-14] MEDS: LASIX IV SCH (05:57)
[2018-10-14] MEDS: SYNTHROID PO SCH (06:00)
[2018-10-14] MEDS: PRILOSEC PO SCH (06:00)
[2018-10-14] MEDS: OXYCONTIN PO SCH (06:00)
[2018-10-14] MEDS: ALDACTONE PO SCH (08:40)
[2018-10-14] MEDS: GLUCOPHAGE PO SCH (08:40)
[2018-10-14] MEDS: IMDUR PO SCH (08:40)
[2018-10-14] MEDS: KLOR-CON PO SCH (08:41)
[2018-10-14] MEDS: LOPRESSOR PO SCH (08:41)
[2018-10-14] MEDS: CYMBALTA PO SCH (08:51)
--- NOTE | 2018-10-14 08:53 | DISCHARGE SUMMARY ---
ADMISSION DATE: 10/09/2018 DISCHARGE DATE: 10/14/2018 FINAL DIAGNOSES: 1. Acute systolic congestive heart failure. 2. Pulmonary edema. 3. Peripheral edema. 4. Diabetes. 5. Chronic neck and spine pain secondary to osteoarthritis. 6. Lumbar disk disease. 7. Hypothyroidism, 8. Atrial fibrillation with rapid ventricular response. DISCHARGE MEDICATIONS: Usual medication at home except Lasix is increased to 40 mg b.i.d. instead of once daily. Also, digoxin 125 mcg is added once daily. HISTORY: This is the first fairly recent [facility] admission for this 83-year-old white female who presented to the emergency room with a several-day history of increasing shortness of breath. Chest x-ray revealed pulmonary edema. Initial laboratory, hemoglobin 11.9, hematocrit 36.8, white blood count 9400 with normal differential. Sodium 139, potassium 5.0, BUN 27, creatinine 1.1, glucose 158. Liver functions normal. TSH 4.5. ProBNP 8268. CK 81 with troponin less than 0.01. Albumin was low at 3.4. HOSPITAL COURSE: She had good diuresis with IV Lasix. Peripheral edema resolved. Chest x-ray showed persistent infiltrate, but improved. Discussion was made with the patient and daughter concerning disposition. It is felt she will benefit most from rehab placement and physical therapy prior to returning to assisted living. She is discharged home today on the above medications to be seen back in the office after rehab placement. cc: Abhi Rebolledo MD
[2018-10-14] MEDS ORDERED: LANOXIN PO SCH (09:00)
[2018-10-14 11:32] VITALS: BP 119/71
== END 2018-10-14 13:27 | DRG 293 ==
LOC: ED 17:37 → 3N 22:07 → 3S 22:53
PROVIDERS: ADMIT Family Medicine; ATTEND Family Medicine
CPT/HCPCS: 51702; 71010; 71020; 71045; 71046; 78452; 80048; 80053; 81001; 82550; 82948; 83036; 83605; 83735; 83880; 84439; 84443; 84484; 85025; 85610; 93005; 93017; 93306; 94760; 94761; 94799; 96374; 97162; 97530; 99285; A9270; A9500; J1160; J1940; J2785; XXXXX

== ENCOUNTER 2018-11-16 12:40 | Inpatient (IN) ==
--- NOTE | 2018-11-16 14:30 | EKG Report ---
Test Performed on : 11/16/2018 12:48:19 PM Test Reason : AMS Blood Pressure : / mmHG Vent. Rate : 116 BPM Atrial Rate : 105 BPM P-R Int : 000 ms QRS Dur : 088 ms QT Int : 300 ms P-R-T Axes : 000 021 -24 degrees QTc Int : 417 ms Poor data quality, interpretation may be adversely affected Atrial fibrillation. with rapid ventricular response. Abnormal ECG When compared with ECG of 09-OCT-2018 18:04, (Unconfirmed) Nonspecific T wave abnormality, improved in Anterolateral leads Unconfirmed Result
[2018-11-16 14:44] LABS: BASO# 0.02 X1000 (0.0-0.2); BASO% 0.2 % (0.0-0.8); EOS# 0.26 X1000 (0.0-0.7); EOS% 2.2 % (0.0-10.0); HEMATOCRIT 39.2 % (37.0-47.0); HEMOGLOBIN 12.2 g/dL (12.0-16.0); IMM GRAN# 0.03 X1000 (0.0-0.04); IMM GRAN% 0.3 % (0.0-0.5); LYMPH# 1.59 X1000 (1.2-3.4); LYMPH% 13.6 % (20.5-51.1); MCH 30.4 PG (27-31); MCHC 31.1 g/dL (33-37); MCV 97.8 FL (81-99); MONO# 0.89 X1000 (0.11-0.59); MONO% 7.6 % (1.7-9.3); MPV 10.1 FL (7.4-10.4); NEUT# 8.86 X1000 (1.4-6.5); NEUT% 76.1 % (42.2-75.2); PLT 262 X1000 (130-400); RBC 4.01 XMIL (4.2-5.4); RDW 15.7 % (11.5-14.5); WBC 11.65 X1000 (4.8-10.8)
[2018-11-16 14:48] LABS: BLOOD TYPE ARTERIAL; SAMPLE BLOOD
[2018-11-16 14:49] LABS: ALLEN TEST YES; BE 9.1 mmoll (-3.0-3.0); HCO3-(ACT) 31.9 mmoll (20.0-26.0); METHB 1.1 % (0.0-1.5); MODALITY CANNULA; O2(CT) 16.2 mL/dL (15.0-23.0); O2HB 93.9 % (95.0-99.0); PO2(98.6) 73 mmHg (60-100); SAO2 96.5 % (95.0-100.0); THB 12.2 g/dL (11.5-17.4); pH(98.6) 7.41 (7.35-7.45)
[2018-11-16 14:50] LABS: PCO2(98.6) 56 mmHg (35-45)
[2018-11-16 15:03] LABS: ALB/GLOB RATIO 1.1; ALBUMIN 3.5 g/dL (3.5-5.0); CALCIUM 9.1 mg/dL (8.8-10.2); CREATININE 1.1 mg/dL (0.5-0.9); POTASSIUM 4.3 mmol/L (3.5-5.1); TOTAL BILIRUBIN 0.2 mg/dL (0.20-1.00); TOTAL PROTEIN 6.8 g/dL (6.3-8.3)
--- NOTE | 2018-11-16 15:13 | Diag Imaging Result Doc PS360 ---
EXAM: CHEST-1 VIEW 11/16/2018 HISTORY: ams TECHNIQUE: AP portable at 1439 COMMENT: Compared to 10/13/2018 there is increasing opacity in the left upper lobe. The lateral right apical region is also somewhat denser. IMPRESSION: Worsening upper lobe pneumonia has. Electronically signed by Jey Montgomery 11/16/2018 3:10 PM
--- NOTE | 2018-11-16 15:57 | Diag Imaging Result Doc PS360 ---
EXAM: CT HEAD W/O CONTRAST INDICATION: AMS TECHNIQUE: This exam was performed using automated exposure control, adjustment of mA or kV according to patient size, and/or use of iterative reconstruction technique. COMPARISON: 12/16/2013 FINDINGS: There is stable mild diffuse brain atrophy. There is patchy low attenuation in the periventricular and subcortical white matter suggesting moderate white matter microangiopathy. It does appear to be slightly worse than the previous study. There is no definite acute infarct given the limited sensitivity of CT versus MRI. There is no discrete intracranial mass, mass effect, or intracranial hemorrhage. The surrounding soft tissues and bony structures are essentially unremarkable. IMPRESSION: Chronic appearing changes as described. No definite acute intracranial pathology by CT Electronically signed by Crescencio Hickey 11/16/2018 3:55 PM
[2018-11-16 17:00] LABS: URINE SOURCE CLEAN CATCH
[2018-11-16 17:09] LABS: BILIRUBIN URINE NEGATIVE (NEGATIVE); BLOOD URINE NEGATIVE (NEGATIVE); COLOR YELLOW; GLUCOSE URINE NEGATIVE (NEGATIVE); KETONE URINE NEGATIVE (NEGATIVE); LEUKOCYTES URINE NEGATIVE (NEGATIVE); NITRITE URINE NEGATIVE (NEGATIVE); PROTEIN URINE NEGATIVE (NEGATIVE); SP GRAVITY URINE 1.008; TURBIDITY URINE CLEAR (CLEAR); UROBILINOGEN URINE NORMAL (NORMAL)
[2018-11-16 17:11] LABS: UR EPITHELIAL CELLS <10 /HPF (<10); URINE BACTERIA NEGATIVE /HPF; URINE RBC <10 /HPF (<10); URINE WBC <10 /HPF (<10)
[2018-11-16] MEDS ORDERED: LEVAQUIN 500 MG/D5W 500 MG/100 ML IVPB IV ONE (17:30)
--- NOTE | 2018-11-16 17:33 | PROVIDER DOCUMENTATION ---
This chart was entered by Shirley Maier Scribe, acting as scribe for Jose Luis García MD. HPI-Neurological Disorder - General Chief Complaint: Altered Mental Status Stated Complaint: AMS Time Seen by Provider: 11/16/18 14:20 Source: family (daughter) Allergies/Adverse Reactions: Patient Allergies Allergy/AdvReac Type Severity Reaction Status Date / Time amiodarone Allergy Severe RASH Verified 10/17/15 11:09 amitriptyline HCl * Allergy Severe wild, Verified 10/17/15 11:09 [From Elavil] aggitation aspirin Allergy Severe heart Verified 10/17/15 11:09 flutters caffeine Allergy Severe heart Verified 10/17/15 11:09 [From Darvon Compound-65] flutters cephalexin monohydrate * Allergy Severe RASH Verified 10/17/15 11:09 [From Keflex] codeine [Codeine] Allergy Severe crazy,n&V Verified 10/17/15 11:09 erythromycin estolate * Allergy Severe RASH Verified 10/17/15 11:09 [From Ilosone] hydrocodone bitartrate * Allergy Severe NAUSEA/VOMI Verified 10/17/15 11:09 [From Lortab] TING hydromorphone HCl * Allergy Severe RASH Verified 10/17/15 11:09 [From Dilaudid] indomethacin [From Indocin] Allergy Severe RASH Verified 10/17/15 11:09 indomethacin sodium * Allergy Severe RASH Verified 10/17/15 11:09 [From Indocin] Iodinated Contrast- Oral and Allergy Severe ANAPHYLAXIS Verified 10/17/15 11:09 IV Dye meperidine HCl * Allergy Severe crazy, Verified 10/17/15 11:09 [From Demerol] makes me mean, aggitation morphine Allergy Severe RASH, Verified 10/17/15 11:09 whelps pentazocine lactate * Allergy Severe crazy Verified 10/17/15 11:09 [From Talwin] perphenazine Allergy Severe crazy Verified 10/17/15 11:09 [From Triavil 2-10] phenobarbital Allergy Severe rash,vomiti Verified 10/17/15 11:09 ng povidone-iodine Allergy Severe RASH Verified 10/17/15 11:09 [From Betadine] pregabalin [From Lyrica] Allergy Severe Unknown Verified 10/17/15 11:09 propoxyphene HCl * Allergy Severe heart Verified 10/17/15 11:09 [From Darvon Compound-65] flutters soap * [From Betadine] Allergy Severe RASH Verified 10/17/15 11:09 Tetracyclines Allergy Severe blisters Verified 10/17/15 11:09 in mouth, gums bleed diltiazem HCl * Allergy RASH Verified 10/17/15 11:09 [From Cardizem] Latex, Natural Rubber Allergy RASH Verified 10/17/15 11:33 Home Medications: Home Medication List Medication Instructions Recorded Confirmed Last Taken Type Metformin HCl 500 mg PO DAILY 09/12/15 10/10/18 10/17/15 History Oxycodone HCl/Acetaminophen 1 tab PO TID PRN PRN 09/12/15 10/10/18 10/17/15 History [Oxycodon-Acetaminophen 7.5-325] Furosemide [Lasix] 40 mg PO DAILY #0 tablet 09/20/15 10/10/18 10/17/15 Rx Duloxetine [Cymbalta] 60 mg PO DAILY capsule 01/08/17 10/10/18 Unknown Rx Oxycodone E.r. [Oxycontin] 10 mg PO Q12HR #60 tablet 01/08/17 10/10/18 Unknown Rx Acetaminophen E.r. [Tylenol 650 mg PO TID PRN PRN 10/10/18 10/10/18 Unknown History Arthritis] Benzonatate 200 mg PO TID PRN PRN 10/10/18 10/10/18 Unknown History Diphenhydramine HCl [Banophen] 25 mg PO BID PRN PRN 10/10/18 10/10/18 Unknown History Esomeprazole Magnesium [Nexium 20 mg PO DAILY 10/10/18 10/10/18 Unknown History 24Hr] Ibuprofen 200 mg PO TID PRN PRN 10/10/18 10/10/18 Unknown History Iron Fum,Ps No.1/Vit C/L.casei 1 ea PO DAILY 10/10/18 10/10/18 Unknown History [Fusion Capsule] Isosorbide Mononitrate [Isosorbide 30 mg PO DAILY 10/10/18 10/10/18 Unknown History Mononitrate ER] Levothyroxine [Synthroid] 50 mcg PO DAILY 10/10/18 10/10/18 Unknown History Metformin [Glucophage] 1,000 mg PO WSUPPER 10/10/18 10/10/18 Unknown History Metoprolol Succinate E.r. [Toprol 50 mg PO TID 10/10/18 10/10/18 Unknown History Xl] Potassium Chloride E.r. [Klor-Con] 10 meq PO BID 10/10/18 10/10/18 Unknown History Spironolactone 25 mg PO DAILY 10/10/18 10/10/18 Unknown History Trazodone HCl 100 mg PO HS 10/10/18 10/10/18 Unknown History Warfarin [Coumadin] 2.5 mg PO DAILY 10/10/18 10/10/18 Unknown History Warfarin [Coumadin] 5 mg PO DIRECTED 10/10/18 10/10/18 Unknown History Digoxin [Lanoxin] 125 microgm PO DAILY tab 10/14/18 Unknown Rx Metoprolol [Lopressor] 50 mg PO BID tab 10/14/18 Unknown Rx Oxycodone E.r. [Oxycontin] 10 mg PO Q12H tab 10/14/18 Unknown Rx Warfarin [Coumadin] 5 mg PO [place] tab 10/14/18 Unknown Rx - History of Present Illness-Neuro Nature of Presenting Problem: Patient is a 83 year old female who presents to the ED via EMS with altered mental status. Daughter states patient has been agitated, disoriented and having tremors. States symptoms have been present for 1 week and getting worse. Patient denies pain. Severity: reports: mild Onset/Duration: reports: 1 week ago Timing: reports: still present, getting worse Context: reports: other (AMS and tremors) Character of Altered Mental Status: reports: disoriented (per family), agitated Any recent trauma/injury?: reports: none Cognitive Baseline: alert, oriented x3 Associated Symptoms: reports: denies symptoms, other (tremors) Similar Symptoms Previously?: Yes Recently seen or treated by another doctor?: No - Seizure First time to have a seizure?: No Witnessed seizure?: No Review of Systems - Adult - REVIEW OF SYSTEMS - ADULT ROS:: ROS per family (daughter) Constitutional: reports: no symptoms reported, see HPI. denies: chills, fever, fatique Eyes: reports: no symptoms reported, see HPI Ears, Nose, Mouth & Throat: reports: no symptoms reported, see HPI Cardiovascular: reports: no symptoms reported, see HPI Respiratory: reports: no symptoms reported, see HPI Gastrointestinal: reports: no symptoms reported, see HPI Genitourinary: reports: no symptoms reported, see HPI Musculoskeletal: reports: no symptoms reported, see HPI Integumentary: reports: no symptoms reported, see HPI Neurological: reports: see HPI, tremors, other (AMS - agitated and disoriented). denies: dizziness/vertigo, headache/migraines Psychiatric: reports: no symptoms reported, see HPI Endocrine: reports: no symptoms reported, see HPI Hematologic/Lymphatic: reports: no symptoms reported, see HPI Allergic/Immunologic: reports: no symptoms reported, see HPI All Other Systems: Reviewed and Negative Past History - Adult - PAST MEDICAL HISTORY-ADULT Review of Records: reports: Old Records Reviewed, Nursing Assessment Review, Medications Reviewed, Social history reviewed & non-contributory. Major Childhood Illnesses: reports: denies history Cardiovascular: reports: cardiac disease, CHF, HTN, palpitations Respiratory: reports: asthma, COPD Gastrointestinal: reports: denies history Obstetrical/Gynecological: reports: denies history Genitourinary: reports: denies history Musculoskeletal: reports: denies history Neurological: reports: denies history Endocrine/Immune: reports: Diabetes, thyroid disorder Other Conditions: reports: denies history - PRIOR SURGERIES/PROCEDURES Surgical/Procedure History: reports: appendectomy, hysterectomy, orthopedic (extremity) (total knee, left shoulder), joint replacement - IMMUNIZATION STATUS Childhood Immunizations: See Nurse Assessment Flu Vaccine: See Nurse Assessment - FAMILY HISTORY Family History: reviewed, not pertinent - SOCIAL HISTORY Smoking: denies Substance Use: denies Living Situation: care facility (assisted living) Physical Exam- Neurological - Physical Exam-Neuro Initial Vital Signs Reviewed: Yes General Appearance: appears well, alert, no apparent distress. negative: lethargic Eye Exam: bilateral eye: normal inspection, PERRL, EOMI HENMT: normocephalic/atraumatic, moist mucous membranes, other (dry mucous membranes). negative: angioedema Head Injury: no evidence of injury. negative: active bleeding, lacerations Respiratory: chest non-tender, lungs clear, normal breath sounds. negative: rales Cardiovascular: tachycardia, irregularly irregular. negative: systolic murmur Abdominal Exam: normal bowel sounds, soft, tenderness (suprapubic). negative: guarding Extremity: non-tender, other (cellulitis to bilateral lower extremities). negative: deformity blue line trimmer Exam: normal hearing, normal speech, PERRL, other (Pt is AOx3 in the ER.). negative: facial droop Coordination/Gait: normal finger to nose Motor/Sensory: no motor deficit, no sensory deficit, no pronator drift Neurologic: blue line trimmer II-XII nml as tested, grossly normal, no motor/sensory deficits. negative: aphasia, facial droop, motor weakness Integumentary: normal color, normal turgor, warm/dry. negative: diaphoresis, ecchymosis Psych/Mental Status: normal mood/affect. negative: anxious, paranoid - Glascow Coma Scale Best Eye Response: (4) open spontaneously Best Verbal Response: (5) oriented Best Motor Response: (6) obeys commands Progress - PLAN OF CARE/RESULTS Progress/Plan/Lab Results: Vital Signs - 8 hr 11/16/18 12:47 11/16/18 13:58 11/16/18 14:00 Temperature 99.8 F H Pulse Rate 118 H 129 H 121 H Respiratory Rate 16 21 20 Blood Pressure 144/94 109/80 O2 Sat by Pulse Oximetry 99 96 11/16/18 14:02 11/16/18 14:10 11/16/18 14:20 Temperature Pulse Rate 120 H 130 H 127 H Respiratory Rate 19 23 31 H Blood Pressure 125/94 O2 Sat by Pulse Oximetry 95 90 L 93 L 11/16/18 14:30 11/16/18 14:32 11/16/18 14:40 Temperature Pulse Rate 117 H 123 H 126 H Respiratory Rate 22 23 24 Blood Pressure 119/79 O2 Sat by Pulse Oximetry 97 100 91 L 11/16/18 14:50 11/16/18 15:02 11/16/18 15:10 Temperature Pulse Rate 116 H 132 H 126 H Respiratory Rate 19 16 Blood Pressure O2 Sat by Pulse Oximetry 98 90 L 11/16/18 15:20 11/16/18 15:46 11/16/18 15:50 Temperature Pulse Rate 109 H 112 H 103 H Respiratory Rate 23 26 H 27 H Blood Pressure O2 Sat by Pulse Oximetry 91 L 97 11/16/18 16:00 11/16/18 16:03 11/16/18 16:10 Temperature Pulse Rate 120 H 115 H 118 H Respiratory Rate 15 19 17 Blood Pressure 145/93 O2 Sat by Pulse Oximetry 94 L 96 94 L 11/16/18 16:20 11/16/18 16:30 11/16/18 16:32 Temperature Pulse Rate 115 H 118 H 98 H Respiratory Rate 17 18 21 Blood Pressure 127/87 O2 Sat by Pulse Oximetry 94 L 99 99 11/16/18 16:40 Temperature Pulse Rate 103 H Respiratory Rate 21 Blood Pressure O2 Sat by Pulse Oximetry 98 Laboratory Results - last 24 hr 11/16/18 11/16/18 11/16/18 14:15 14:15 14:15 WBC 11.65 H RBC 4.01 L Hgb 12.2 Hct 39.2 MCV 97.8 MCH 30.4 MCHC 31.1 L RDW Std Deviation 15.7 H Plt Count 262 MPV 10.1 Immature Gran % (Auto) 0.3 Neut % (Auto) 76.1 H Lymph % (Auto) 13.6 L [place] % (Auto) 7.6 Eos % (Auto) 2.2 Baso % (Auto) 0.2 Immature Gran # (Auto) 0.03 Neut # (Auto) 8.86 H Lymph # (Auto) 1.59 [place] # (Auto) 0.89 H Eos # (Auto) 0.26 Baso # (Auto) 0.02 Specimen Type Sample Site pH pCO2 pO2 HCO3 Base Excess Oxyhemoglobin ABG O2 Sat (Calculated) ABG O2 Saturation ABG Carboxyhemoglobin ABG Methemoglobin Amaury Test A-a O2 Difference Total Hemoglobin Lactate Liter Flow Blood Gas Modality FiO2 % Sodium 141 Potassium 4.3 Chloride 96 L Carbon Dioxide 31 Anion Gap 14 BUN 20 Creatinine 1.1 H Estimated GFR/1.73 m2 48 BUN/Creatinine Ratio 18 Glucose 186 H POC Glucose Calculated Osmolality 289 Calcium 9.1 Total Bilirubin 0.20 AST 30 ALT 13 Alkaline Phosphatase 70 Troponin T 0.013 Total Protein 6.8 Albumin 3.5 Globulin 3.3 Albumin/Globulin Ratio 1.1 Urine Source Urine Color Urine Turbidity Urine pH Ur Specific State Road Urine Protein Ur Glucose (Stick) Ur Ketones (Stick) Urine Blood Urine Nitrite Urine Bilirubin Urobilinogen Dipstick Urine Leukocytes Urine WBC (Auto) Urine RBC (Auto) U Epithel Cells (Auto) Urine Bacteria (Auto) 11/16/18 11/16/18 11/16/18 14:39 14:43 16:45 WBC RBC Hgb Hct MCV MCH MCHC RDW Std Deviation Plt Count MPV Immature Gran % (Auto) Neut % (Auto) Lymph % (Auto) [place] % (Auto) Eos % (Auto) Baso % (Auto) Immature Gran # (Auto) Neut # (Auto) Lymph # (Auto) [place] # (Auto) Eos # (Auto) Baso # (Auto) Specimen Type ARTERIAL Sample Site R RADIAL pH 7.41 pCO2 56 H* pO2 73 HCO3 31.9 H Base Excess 9.1 H Oxyhemoglobin 93.9 L ABG O2 Sat (Calculated) 16.2 ABG O2 Saturation 96.5 ABG Carboxyhemoglobin 1.60 ABG Methemoglobin 1.1 Amaury Test YES A-a O2 Difference 85.0 Total Hemoglobin 12.2 Lactate 2.80 H Liter Flow 3.0 Blood Gas Modality CANNULA FiO2 % 32.0 Sodium Potassium Chloride Carbon Dioxide Anion Gap BUN Creatinine Estimated GFR/1.73 m2 BUN/Creatinine Ratio Glucose POC Glucose 175 H Calculated Osmolality Calcium Total Bilirubin AST ALT Alkaline Phosphatase Troponin T Total Protein Albumin Globulin Albumin/Globulin Ratio Urine Source CLEAN CATCH Urine Color YELLOW Urine Turbidity CLEAR Urine pH 7.[address] 1.008 Urine Protein NEGATIVE Ur Glucose (Stick) NEGATIVE Ur Ketones (Stick) NEGATIVE Urine Blood NEGATIVE Urine Nitrite NEGATIVE Urine Bilirubin NEGATIVE Urobilinogen Dipstick NORMAL Urine Leukocytes NEGATIVE Urine WBC (Auto) <10 Urine RBC (Auto) <10 U Epithel Cells (Auto) <10 Urine Bacteria (Auto) NEGATIVE Orders Category Date Time Status Nursing- Obtain EKG ONCE Care 11/16/18 14:[address] HEAD W/O CONTRAST [CT] Stat Exams 11/16/18 14:32 Completed cxr [CHEST-1 VIEW] [RAD] Stat Exams 11/16/18 14:23 Completed ABG [RESP] Routine Lab 11/16/18 14:39 Completed BLOOD CULTURE [BLDCUL] Stat Lab 11/16/18 17:30 Ordered CBC WITH ELECTRONIC DIFF [HEME] Stat Lab 11/16/18 14:15 Completed COMPREHENSIVE METABOLIC PANEL [CHEM] Stat Lab 11/16/18 14:15 Completed PROTIME WITH INR [COAG] Stat Lab 11/16/18 18:10 Ordered PTT [COAG] Stat Lab 11/16/18 18:10 Ordered TROPONIN T Stat Lab 11/16/18 14:15 Completed URINALYSIS W/POSS RFLX CULT [URINALYSIS] Stat Lab 11/16/18 16:45 Completed Albuterol 2.5MG/Ipratrop 0.5MG [Duoneb (A & A)] Med 11/16/18 17:52 Discontinued 3 ml INH NOW ONE Levofloxacin 500 mg/D5w [Levaquin 500 mg/D5w] Med 11/16/18 17:30 Discontinued 500 mg in 100 ml IV NOW Aerosol Treatments Routine Oth 11/16/18 17:52 Active Aerosol Treatments Stat Oth 11/16/18 17:52 Active EKG [EKG] Stat Ther 11/16/18 14:23 Draft Transfer/Admit Order [TRANSFER] Routine Transfer 11/16/18 18:31 Ordered Pt discussed with Dr Rubio who declined to admit advising for pt to get ABx, steroid, and inhaler and follow up with Dr Rebolledo in the AM. Pt agrees with plan and will follow up in am. Result Diagrams: 11/16/18 14:15 11/16/18 14:15 - EKG 1 Time of EKG reading by physician:: 12:48 EKG Read and Signed by:: Jose Luis García EKG Interpretation (*Must complete 3 of following elements*): Abnormal Rate: 116 Rhythm: atrial fibrillation with rapid ventricular response [place]: normal Comments: abnormal ECG 2 Time of EKG reading by physician:: 16:16 EKG Read and Signed by:: Jose Luis García EKG Interpretation (*Must complete 3 of following elements*): Abnormal Rate: 117 Rhythm: atrial fibrillation with rapid ventricular response [place]: normal Comments: nonspecific T wave abnormality. - XRAY 1 XRAY Study: Chest Impression: See EMR Report ( EXAM: CHEST-1 VIEW 11/16/2018 HISTORY: ams TECHNIQUE: AP portable at 1439 COMMENT: Compared to 10/13/2018 there is increasing opacity in the left upper lobe. The lateral right apical region is also somewhat denser. IMPRESSION: Worsening upper lobe pneumonia has. Electronically signed by Jey Montgomery 11/16/2018 3:10 PM 11/16/18 1510 Interpreting Physician: Jey Montgomery MD Dictated Date/Time: 11/16/18 1510 cc: Jose Luis García MD; Abhi Rebolledo MD) - CT/MRI 1 CT Study: Head Impression: See EMR Report ( EXAM: CT HEAD W/O CONTRAST INDICATION: AMS TECHNIQUE: This exam was performed using automated exposure control, adjustment of mA or kV according to patient size, and/or use of iterative reconstruction technique. COMPARISON: 12/16/2013 FINDINGS: There is stable mild diffuse brain atrophy. There is patchy low attenuation in the periventricular and subcortical white matter suggesting moderate white matter microangiopathy. It does appear to be slightly worse than the previous study. There is no definite acute infarct given the limited sensitivity of CT versus MRI. There is no discrete intracranial mass, mass effect, or intracranial hemorrhage. The surrounding soft tissues and bony structures are essentially unremarkable. IMPRESSION: Chronic appearing changes as described. No definite acute intracranial pathology by CT Electronically signed by Crescencio Hickey 11/16/2018 3 :55 PM 11/16/18 8148 Interpreting Physician: Crescencio Hickey MD Dictated Date/Time: 11/16/18 4928 cc: Jose Luis García MD; Abhi Rebolledo MD) - CONSULTS/PCP/HOSPITALIST Notification #1 *Consult/PCP/Hospitalist*: Dr. Rubio for Dr. Rebolledo Time Discussed: 17:40 Reason/Comments: Dr. García consulted with Dr. Rubio about patient. Consult Disposition: other (Dr. Rubio declined admission and advised antibiotics and steroid inhaler.) #2 Consult: Dr Rebolledo to exam room and plans to admit pt. Time Discussed: 19:26 Consult Disposition: Will see in ED, Admit Departure - Departure Date of Disposition Decision: 11/16/18 Time of Disposition Decision: 17:32 DIAGNOSIS: COPD (chronic obstructive pulmonary disease), Pneumonia, Renal insufficiency Disposition: ADMITTED INPATIENT 09 Certified Medical Emergency: Emergent Condition: Fair Additional Freetext Instructions: ED Follow Up Instructions: You have been treated by a care provider in the Emergency Department. These instructions are being provided to you so you can have an understanding of how to care for yourself upon discharge. Upon discharge from the Emergency Department, you are responsible for making arrangements for follow-up care by a physician of your choice. Take all prescribed medications as directed. Return to the Emergency Department immediately for any new or worsening symptoms. You may call the Physician Referral phone number at [phone] to obtain a list of Physicians who are taking new patients. Referrals and Follow-Ups: Abhi Rebolledo MD [Primary Care Provider] - - Critical Care Note This patient required my direct & personal management of CC.: No Attestation - Physician/ GOOD Attestation Patient care was provided by Advanced Practice Provider:: No The physician spent face to face time with patient:: Yes Advanced Practice Provider documentation review:: Supervising physician onsite and consulted in the evaluation and care of this patient. The physician did have a face to face encounter with the patient. This chart was documented by the indicated scribe, (Shirley Maier Scribe) and accurately reflects the services I performed and decisions made by me, Jose Luis García MD, as attested by the provider's signature.
[2018-11-16] MEDS ORDERED: DUONEB (A & A) INH ONE (17:52)
--- NOTE | 2018-11-16 19:47 | HISTORY AND PHYSICAL ---
CHIEF COMPLAINT: Pneumonia, left upper lobe, also cough for several days and altered mental status. HISTORY OF PRESENT ILLNESS: [facility] 83-year-old white female, resident at Assisted Living, who for the last 3 days has been weaker, shaky, and gradually has become confused and disoriented. The daughter stated that when nursing assistants stood her up that she was very shaky and unable to stand without 2 people assisting. She was brought by ambulance to the emergency room where chest x-ray revealed left upper lobe pneumonia. CT scan of her head revealed no mass or acute change. There were chronic microvascular changes. She is admitted for treatment with intravenous antibiotics and nebulizer treatments as well as oxygen. PAST MEDICAL HISTORY: Recent hospitalization for congestive heart failure and diuresis. PAST SURGICAL HISTORY: Her last surgery was left shoulder surgery. She has had no recent surgery. MEDICATIONS: Numerous including ibuprofen 200 mg 2 t.i.d. p.r.n. pain, OxyContin 10 mg q.12 hours, Percocet 7.5/325 1 t.i.d., Tessalon Perles 200 mg t.i.d., digoxin 0.125 mg 1 daily, duloxetine 60 mg daily, Nexium 20 mg 1 daily. Isosorbide mononitrate 30 mg 1 daily, levothyroxine 50 mcg 1 daily, metformin 500 mg q.a.m., and 1000 mg q.p.m., metoprolol 50 mg b.i.d., spironolactone 25 mg daily, warfarin 2.5 mg daily. ALLERGIES: Several including amiodarone, amitriptyline, aspirin, and caffeine. REVIEW OF SYSTEMS: Significant for osteoarthritis of the spine with degenerative disk disease, recurrent cellulitis of her lower legs, atrial fibrillation, congestive heart failure with cardiomyopathy. She has been on Lasix and spironolactone with minimal edema over the past couple weeks. She has had low-grade fever. SOCIAL HISTORY: She is a and is presently in assisted living facility. She has a daughter in town who assists in her care. There is no history of smoking or alcohol usage. PHYSICAL EXAMINATION: VITAL SIGNS: Temperature 99.8 degrees, heart rate 118, respirations 16, blood pressure 144/94, O2 saturation 99 on 4 L nasal oxygen. She is confused, but answers simple questions appropriately. HEENT: Pupils are equal, round, and reactive to light. Pharynx benign. NECK: Supple with no mass or lymphadenopathy. HEART: Irregular in rate and rhythm with no murmur or gallop. LUNGS: Decreased breath sounds in the left upper lung field, but no audible rales or rhonchi. ABDOMEN: Soft with no mass, tenderness, or organomegaly. EXTREMITIES: Trace ankle edema. There is no pretibial edema. She has some pretibial erythema. RECTAL AND GENITALIA: Deferred. IMPRESSION: Left upper lobe pneumonia, acute mental change, history of congestive heart failure, diabetes, atrial fibrillation. PLAN: Admit for further evaluation and treatment with nebulizer and intravenous antibiotics. Blood cultures have been done. cc: Abhi Rebolledo MD
[2018-11-16] MEDS ORDERED: PERCOCET-5 PO PRN (20:54)
[2018-11-16] MEDS ORDERED: TESSALON PO PRN (20:54)
[2018-11-16] MEDS ORDERED: LEVAQUIN 750 MG in NS 150 ML IV SCH (20:54)
[2018-11-16] MEDS: DUONEB (A & A) INH SCH ×2 (21:19→22:40)
[2018-11-16 21:46] LABS: INR 2.62; PROTIME 28.7 Seconds (11.0-16.0)
[2018-11-16 21:47] LABS: PTT 49.1 Seconds (22.3-41.8)
[2018-11-16] MEDS ORDERED: VANCOMYCIN IV PER PHARMACY MISC SCH (23:45)
[2018-11-17] MEDS: LOPRESSOR PO SCH ×3 (00:06→21:00)
[2018-11-17] MEDS: COUMADIN PO SCH ×2 (00:07→17:19)
[2018-11-17] MEDS: OXYCONTIN PO SCH ×3 (00:08→21:00)
[2018-11-17] MEDS ORDERED: VANCOMYCIN 1,550 MG in NS 250 ML IV ONE (03:00)
[2018-11-17] MEDS: SYNTHROID PO SCH ×2 (05:57→06:24)
--- NOTE | 2018-11-17 07:51 | EKG Report ---
Test Performed on : 11/16/2018 4:16:03 PM Test Reason : ED. NO EKG ORDER FOR MUSE Blood Pressure : / mmHG Vent. Rate : 117 BPM Atrial Rate : 117 BPM P-R Int : 000 ms QRS Dur : 084 ms QT Int : 320 ms P-R-T Axes : 000 022 -12 degrees QTc Int : 446 ms Atrial fibrillation. with rapid ventricular response. Nonspecific T wave abnormality Abnormal ECG When compared with ECG of 16-NOV-2018 16:15, (Unconfirmed) No significant change was found Unconfirmed Result
[2018-11-17] MEDS: CYMBALTA PO SCH (08:11)
[2018-11-17] MEDS: IMDUR PO SCH (08:11)
[2018-11-17] MEDS: GLUCOPHAGE PO SCH ×2 (08:11→17:19)
[2018-11-17] MEDS: NEXIUM PO SCH (08:11)
[2018-11-17] MEDS: ALDACTONE PO SCH (08:12)
[2018-11-17] MEDS: LANOXIN PO SCH (08:12)
--- NOTE | 2018-11-17 08:33 | PROGRESS NOTE ---
DATE: 11/17/2018 VITAL SIGNS: Stable with temperature 97.8 degrees, heart rate 103, respirations 20, blood pressure 134/90, O2 saturation of 97% on 2 liters nasal oxygen. LABORATORY: White blood count was 11,600 yesterday and hematocrit 39.2. INR was 2.6. She continues to have atrial fibrillation. She seems comfortable but there is persistent decreased breath sounds at the left upper lung field and a few rhonchi. The abdomen is soft. PLAN: Continue IV antibiotics with Levaquin. Cultures are pending. We will attempt to get her up in a chair today. cc: Abhi Rebolledo MD
[2018-11-17] MEDS: DUONEB (A & A) INH SCH ×5 (11:30→23:32)
[2018-11-17] MEDS: DESYREL PO SCH (22:14)
[2018-11-18] MEDS: DUONEB (A & A) INH SCH ×3 (07:42→15:00)
--- NOTE | 2018-11-18 07:51 | PROGRESS NOTE ---
DATE: 11/18/2018 VITAL SIGNS: Temperature 97.9 degrees, heart rate 85, respirations 18, blood pressure 117/80, O2 saturation on 2 liters nasal oxygen of 96%. The patient is somnolent and a little difficult to arouse, but seems appropriate. She continues to be afebrile. Blood cultures revealed no growth at 48 hours. Lungs seem to be clearing. PLAN: Ambulate, repeat chest x-ray tomorrow morning. cc: Abhi Rebolledo MD
[2018-11-18] MEDS: IMDUR PO SCH (08:58)
[2018-11-18] MEDS: CYMBALTA PO SCH (08:58)
[2018-11-18] MEDS: LOPRESSOR PO SCH ×2 (08:58→20:27)
[2018-11-18] MEDS: GLUCOPHAGE PO SCH ×2 (08:58→16:52)
[2018-11-18] MEDS: NEXIUM PO SCH (08:59)
[2018-11-18] MEDS: LANOXIN PO SCH (08:59)
[2018-11-18] MEDS: ALDACTONE PO SCH (08:59)
[2018-11-18] MEDS: OXYCONTIN PO SCH ×2 (12:11→20:26)
[2018-11-18] MEDS: VANCOMYCIN 1,350 MG in NS 250 ML IV SCH (15:30)
[2018-11-18] MEDS: COUMADIN PO SCH (16:59)
[2018-11-18] MEDS: SYNTHROID PO SCH (19:22)
[2018-11-18] MEDS: DESYREL PO SCH (20:27)
[2018-11-18] MEDS: ALBUTEROL NEB INH SCH (20:32)
[2018-11-19] MEDS: SYNTHROID PO SCH (06:22)
--- NOTE | 2018-11-19 07:48 | Diag Imaging Result Doc PS360 ---
EXAM: CHEST-2 VIEWS HISTORY: pneumonia TECHNIQUE: Chest two views COMPARISON: 11/16/2018 FINDINGS: Poor inspiratory effort. The heart is mildly prominent. There are increased interstitial markings in the left lung and right apex similar to the prior study. No pleural effusions. IMPRESSION: Stable chest Electronically signed by Abdiaziz Trujillo 11/19/2018 7:46 AM
[2018-11-19] MEDS: ALBUTEROL NEB INH SCH ×4 (08:41→20:01)
[2018-11-19] MEDS: OXYCONTIN PO SCH ×2 (09:07→20:28)
[2018-11-19] MEDS: CYMBALTA PO SCH (09:08)
[2018-11-19] MEDS: ALDACTONE PO SCH (09:08)
[2018-11-19] MEDS: LANOXIN PO SCH (09:08)
[2018-11-19] MEDS: GLUCOPHAGE PO SCH ×2 (09:13→17:22)
[2018-11-19] MEDS: IMDUR PO SCH (09:13)
[2018-11-19] MEDS: LOPRESSOR PO SCH ×2 (09:13→20:28)
[2018-11-19] MEDS: NEXIUM PO SCH (09:13)
--- NOTE | 2018-11-19 09:23 | PROGRESS NOTE ---
DATE: 11/19/2018 VITAL SIGNS: Temperature 98.4 degrees, heart rate 88, respirations 14, blood pressure 130/93. O2 sat on nasal oxygen 99%. LUNGS: To auscultation reveal rales in the left upper lung field. Chest x-ray looks similar to previous film with poor inspiratory effort this morning. She states that she is breathing without difficulty, but is mildly tachypneic. PLAN: Lab in the morning with CBC and CMP. She is to ambulate some with nursing assistance today. If there is improvement by tomorrow, there is a chance for her to be discharged back to assisted living. cc: Abhi Rebolledo MD
[2018-11-19] MEDS: COUMADIN PO SCH (17:22)
[2018-11-19] MEDS: DESYREL PO SCH (20:29)
[2018-11-20] MEDS: VANCOMYCIN 1,350 MG in NS 250 ML IV SCH (04:44)
[2018-11-20] MEDS: SYNTHROID PO SCH (06:39)
[2018-11-20] MEDS: TYLENOL ARTHRITIS PO PRN (07:25)
[2018-11-20] MEDS: ALBUTEROL NEB INH SCH ×3 (07:30→21:55)
[2018-11-20 08:23] LABS: BASO# 0.02 X1000 (0.0-0.2); BASO% 0.1 % (0.0-0.8); EOS# 0.01 X1000 (0.0-0.7); EOS% 0.1 % (0.0-10.0); HEMATOCRIT 39.1 % (37.0-47.0); HEMOGLOBIN 12.5 g/dL (12.0-16.0); IMM GRAN# 0.05 X1000 (0.0-0.04); IMM GRAN% 0.3 % (0.0-0.5); LYMPH# 1.21 X1000 (1.2-3.4); LYMPH% 7.3 % (20.5-51.1); MCH 30.9 PG (27-31); MCV 96.5 FL (81-99); MONO% 6.7 % (1.7-9.3); MPV 10.7 FL (7.4-10.4); NEUT# 14.14 X1000 (1.4-6.5); NEUT% 85.5 % (42.2-75.2); PLT 223 X1000 (130-400); RBC 4.05 XMIL (4.2-5.4); RDW 15.5 % (11.5-14.5); WBC 16.53 X1000 (4.8-10.8)
[2018-11-20 08:34] LABS: AGAP 18; BUN 15 mg/dL (8-22); CALCIUM 8.8 mg/dL (8.8-10.2); CHLORIDE 93 mmol/L (98-107); COSMO 274; CREATININE 0.7 mg/dL (0.5-0.9); ESTIMATED GFR > 60; GLUCOSE 185 mg/dL (70-104); POTASSIUM 4.6 mmol/L (3.5-5.1); SODIUM 134 mmol/L (136-145); TCO2 23 mmol/L (25-35)
--- NOTE | 2018-11-20 09:10 | PROGRESS NOTE ---
DATE: 11/20/2018 INTERVAL HISTORY: Heart rate and blood pressure at up 107 and 154/102, respectively. O2 saturation is a little lower at 93 on 3 L nasal oxygen. Her difficulty breathing is about the same and she says she feels pretty good this morning. There is minimal cough. Lungs are clearing. Her appetite is good, but she has been unable to get out of bed. Physical Therapy is asked to assist ambulation. She complains with tremor. Albuterol was decreased in concentration to 1/2 strength as well as decreasing rate to t.i.d. Requip is added for her tremor. She may need to return to rehab if she is unable to walk by Friday. She will be kept over the weekend and repeat chest x-ray done on Friday. cc: Abhi Rebolledo MD
[2018-11-20] MEDS: OXYCONTIN PO SCH ×2 (09:28→20:13)
[2018-11-20] MEDS: NEXIUM PO SCH (09:29)
[2018-11-20] MEDS: IMDUR PO SCH (09:29)
[2018-11-20] MEDS: LOPRESSOR PO SCH ×3 (09:30→20:12)
[2018-11-20] MEDS: ALDACTONE PO SCH (09:30)
[2018-11-20] MEDS: CYMBALTA PO SCH (09:30)
[2018-11-20] MEDS: GLUCOPHAGE PO SCH ×2 (09:30→17:12)
[2018-11-20] MEDS: LANOXIN PO SCH (09:31)
[2018-11-20] MEDS: LEVAQUIN 500 MG/D5W 500 MG/100 ML IVPB IV SCH (12:14)
[2018-11-20] MEDS: REQUIP PO SCH ×2 (12:15→20:12)
[2018-11-20] MEDS: COUMADIN PO SCH (17:13)
--- NOTE | 2018-11-20 18:02 | PROGRESS NOTE ---
DATE: 11/20/2018 SUBJECTIVE: The patient was complaining of moderately severe right shoulder pain this afternoon. Range of motion was limited on the right due to pain. Injection with Depo-Medrol 40 mg and Marcaine was given into the right shoulder joint. Hopefully this will provide some additional relief. She also is receiving [place] for pain. OBJECTIVE: Vital signs: Temperature 97.9, heart rate 120, respirations 18, blood pressure 108/75. O2 saturation on nasal oxygen 94%. ASSESSMENT/PLAN: Chest x-ray tomorrow morning. cc: Abhi Rebolledo MD
--- NOTE | 2018-11-20 19:01 | Diag Imaging Result Doc PS360 ---
EXAM: CHEST-PORTABLE 11/20/2018 HISTORY: pneumonia TECHNIQUE: AP portable upright at 1848 COMMENT: There is alveolar opacity in the upper lobes particularly the left upper lobe. The inspiration is less optimal than on 11/19/2018. There appears to be some improvement in the left lower lobe opacity which was present previously. IMPRESSION: Bilateral upper lobe pneumonia. Improved left lower lobe pneumonia. Electronically signed by Jey Montgomery 11/20/2018 6:58 PM
[2018-11-20] MEDS: DESYREL PO SCH (20:12)
[2018-11-21] MEDS: SYNTHROID PO SCH (06:12)
[2018-11-21] MEDS: ALBUTEROL NEB INH SCH ×3 (07:41→21:46)
[2018-11-21] MEDS: GLUCOPHAGE PO SCH ×2 (09:15→18:00)
[2018-11-21] MEDS: NEXIUM PO SCH (09:15)
[2018-11-21] MEDS: OXYCONTIN PO SCH ×2 (09:15→20:04)
[2018-11-21] MEDS: CYMBALTA PO SCH (09:16)
[2018-11-21] MEDS: ALDACTONE PO SCH (09:16)
[2018-11-21] MEDS: LANOXIN PO SCH (09:16)
[2018-11-21] MEDS: REQUIP PO SCH ×2 (09:16→20:03)
[2018-11-21] MEDS: IMDUR PO SCH (09:16)
[2018-11-21] MEDS: VANCOMYCIN 1,350 MG in NS 250 ML IV SCH (09:17)
[2018-11-21] MEDS: LOPRESSOR PO SCH ×3 (09:18→20:03)
--- NOTE | 2018-11-21 12:53 | PROGRESS NOTE ---
DATE: 11/21/2018 SUBJECTIVE: Ms. Brown is feeling somewhat better. Her vital signs are stable. She still has some chest congestion bilaterally. She has bilateral upper lobe pneumonia. White count is 16.53, hemoglobin 12.5, hematocrit 39.1. She is on IV vancomycin as well as IV Levaquin. Will repeat the chest x-ray some time, so first thing in the morning. cc: MD Abhi Miller MD
[2018-11-21] MEDS: LEVAQUIN 500 MG/D5W 500 MG/100 ML IVPB IV SCH (14:43)
[2018-11-21] MEDS: COUMADIN PO SCH (18:00)
[2018-11-21] MEDS: DESYREL PO SCH (20:03)
[2018-11-21] MEDS: TYLENOL ARTHRITIS PO PRN (20:07)
[2018-11-22] MEDS: SYNTHROID PO SCH (06:12)
[2018-11-22] MEDS: ALBUTEROL NEB INH SCH ×3 (07:40→22:00)
--- NOTE | 2018-11-22 08:25 | Diag Imaging Result Doc PS360 ---
EXAM: CHEST-2 VIEWS 11/22/2018 HISTORY: ghulma pneumonia TECHNIQUE: AP and lateral chest COMMENT: There has been some improvement in the opacification of the left upper lobe since 11/20/2018. There is also ill-defined opacity in the right upper lobe which appears to have improved slightly. IMPRESSION: Improving bilateral pneumonia. Electronically signed by Jey Montgomery 11/22/2018 8:23 AM
[2018-11-22] MEDS: OXYCONTIN PO SCH ×2 (09:10→20:28)
[2018-11-22] MEDS: ALDACTONE PO SCH (09:11)
[2018-11-22] MEDS: LOPRESSOR PO SCH ×3 (09:11→20:28)
[2018-11-22] MEDS: GLUCOPHAGE PO SCH ×2 (09:11→18:37)
[2018-11-22] MEDS: REQUIP PO SCH ×2 (09:11→20:28)
[2018-11-22] MEDS: NEXIUM PO SCH (09:11)
[2018-11-22] MEDS: CYMBALTA PO SCH (09:11)
[2018-11-22] MEDS: LANOXIN PO SCH (09:11)
[2018-11-22] MEDS: VANCOMYCIN 1,350 MG in NS 250 ML IV SCH (09:11)
[2018-11-22] MEDS: IMDUR PO SCH (09:11)
--- NOTE | 2018-11-22 12:39 | PROGRESS NOTE ---
DATE: 11/22/2018 Ms. Brown is admitted with bilateral pneumonia. Her chest x-ray shows improvement in pneumonia. Vital signs are stable. Lungs sound better. Her blood cultures so far are negative. She is on vancomycin and IV Levaquin, which we will continue. -4 cc: MD Abhi Miller MD
[2018-11-22] MEDS: LEVAQUIN 500 MG/D5W 500 MG/100 ML IVPB IV SCH (13:30)
[2018-11-22] MEDS ORDERED: COUMADIN PO SCH (18:00)
[2018-11-22] MEDS: DESYREL PO SCH (20:28)
[2018-11-23] MEDS: SYNTHROID PO SCH (06:46)
--- NOTE | 2018-11-23 08:25 | PROGRESS NOTE ---
DATE: 11/23/2018 Vital signs stable with temperature 97.8, heart rate 83, respirations 14, blood pressure 123/66, O2 saturation on 2 liters nasal oxygen of 98%. Chest x-ray yesterday showed improvement. She seems to feel better and is more alert. She states she walked some yesterday and was up in a chair. PLAN: Discharge either back to assisted living or rehab. Social service consult is obtained. The patient states she feels she can go back to assisted living. Decision will be made this afternoon. CBC on 11/20/2018 revealed increased white blood count of 16,000. Hematocrit was 39.1. CBC will be rechecked this morning. cc: Abhi Rebolledo MD
[2018-11-23] MEDS: ALBUTEROL NEB INH SCH ×2 (08:36→15:12)
[2018-11-23 08:51] LABS: BASO# 0.02 X1000 (0.0-0.2); BASO% 0.2 % (0.0-0.8); EOS# 0.27 X1000 (0.0-0.7); EOS% 3.3 % (0.0-10.0); HEMATOCRIT 36.3 % (37.0-47.0); HEMOGLOBIN 11.4 g/dL (12.0-16.0); IMM GRAN# 0.02 X1000 (0.0-0.04); IMM GRAN% 0.2 % (0.0-0.5); LYMPH# 2.24 X1000 (1.2-3.4); LYMPH% 27.7 % (20.5-51.1); MCH 30.3 PG (27-31); MCHC 31.4 g/dL (33-37); MCV 96.5 FL (81-99); MONO# 0.72 X1000 (0.11-0.59); MONO% 8.9 % (1.7-9.3); MPV 9.3 FL (7.4-10.4); NEUT# 4.82 X1000 (1.4-6.5); NEUT% 59.7 % (42.2-75.2); PLT 342 X1000 (130-400); RBC 3.76 XMIL (4.2-5.4); RDW 15.2 % (11.5-14.5); WBC 8.09 X1000 (4.8-10.8)
[2018-11-23] MEDS: NEXIUM PO SCH (09:58)
[2018-11-23] MEDS: REQUIP PO SCH (09:59)
[2018-11-23] MEDS: GLUCOPHAGE PO SCH ×2 (09:59→17:27)
[2018-11-23] MEDS: LOPRESSOR PO SCH ×2 (09:59→15:59)
[2018-11-23] MEDS: IMDUR PO SCH (09:59)
[2018-11-23] MEDS: CYMBALTA PO SCH (09:59)
[2018-11-23] MEDS: VANCOMYCIN 1,350 MG in NS 250 ML IV SCH (09:59)
[2018-11-23] MEDS: ALDACTONE PO SCH (09:59)
[2018-11-23] MEDS: LANOXIN PO SCH (10:00)
[2018-11-23] MEDS: OXYCONTIN PO SCH (10:03)
[2018-11-23 10:11] LABS: INR 1.89; PROTIME 22.1 Seconds (11.0-16.0)
[2018-11-23] MEDS: LEVAQUIN 500 MG/D5W 500 MG/100 ML IVPB IV SCH (15:52)
[2018-11-23 17:03] VITALS: BP 118/68
[2018-11-23] MEDS: COUMADIN PO SCH (17:27)
--- NOTE | 2018-11-23 18:09 | DISCHARGE SUMMARY ---
ADMISSION DATE: 11/16/2018 DISCHARGE DATE: 11/23/2018 FINAL DIAGNOSES: 1. Bilateral pneumonia. 2. Chronic systolic congestive heart failure. 3. 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 4. Arthritis, right shoulder. 5. Diabetes. 6. Hypothyroidism. 7. Hypertension. 8. History of atrial fibrillation. DISCHARGE MEDICATIONS: Usual medication plus Combivent inhaler 2 puffs q.6 h. p.r.n. shortness of breath and Levaquin 500 mg (#7) 1 daily for infection. HISTORY: This is one of several [facility] admissions for this 83-year-old white female, who had increasing weakness and confusion for 3 days prior to admission. She presented to the emergency room. She was unable to stand without 2 people assisting. She was brought by ambulance. Chest x-ray showed left upper lobe pneumonia. CT scan of her head revealed no mass or acute change. She was admitted for evaluation with blood cultures and treatment with intravenous antibiotics and nebulizer treatments as well as oxygen. INITIAL LABORATORY: Hemoglobin 12.2, hematocrit 39.2, white blood count 11,600. Sodium 141, potassium 4.3, BUN 20, creatinine 1.1, glucose 186. Troponin T 0.013. Total protein 6.8, albumin 3.5. Liver functions normal. HOSPITAL COURSE: She was treated with vancomycin and Levaquin. There was improvement over several days. She continued to be weak and initially ate poorly. Mental status returned to baseline. She has been ambulatory some for a couple of days and desires to go back to assisted living. She is discharged home on her usual medicine plus Levaquin and Combivent, to be seen in the office in 2 weeks for follow-up or as needed. cc: Abhi Rebolledo MD
[2018-11-23] MEDS ORDERED: DUONEB (A & A) INH SCH (22:00)
[2018-11-24] MEDS ORDERED: LEVAQUIN PO SCH (09:00)
== END 2018-11-23 18:51 | DRG 178 ==
LOC: ED 12:40 → 3N 19:32
PROVIDERS: ADMIT Family Medicine; ATTEND Family Medicine